=== PATIENT | female | born 1950 | race Caucasian/White ===

== ENCOUNTER 2019-01-06 16:58 | Emergency (ER) | payer SELFPAY ==
[2019-01-06 16:59] VITALS: BP 149/76; PULSE 65; RESP 16; TEMP 36.7; O2SAT 99; BMI 21.2
--- NOTE | 2019-01-06 17:19 | RAD_ITS ---
STUDY: X-RAY CHEST REASON FOR EXAM: Female, 68 years old. Chest pain TECHNIQUE: Frontal view of the chest COMPARISON: None. FINDINGS: The lungs are clear. There are no pleural effusions. There is no pneumothorax. The heart is normal in size. The visualized osseous structures are within normal limits. Hiatal versus left diaphragmatic hernia present. RAD/Chest 1 View (Portable) IMPRESSION: No acute thoracic pathology. Hiatal versus left diaphragmatic hernia. Electronically Signed: Gee Stanley, at 17:40 EDT Tel , Service support ,
[2019-01-06 17:21] VITALS: BP 126/72; PULSE 91; RESP 24; O2SAT 99
--- NOTE | 2019-01-06 17:27 | ED.VISSUMM ---
- ER Visit Summary Date of Service: 01/06/19 Chief Complaint: Palpitations History of Present Illness: The patient is a 68 F history of anxiety. Patient has no prior cardiac history. No recent travel, surgery, mobilization hospitalization. States that around 130 today start having palpitations. No chest pain. No shortness of breath. She was not lightheaded or dizzy. She did not pass out. No prior history. She does drink caffeine. 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 She denies any recent nausea, vomiting, diarrhea or hemoptysis. No melena. No history of thyroid disease or weight loss. Physical Examination: Older female no acute distress. Vital signs are stable and afebrile. Pulse ox 9% on room air no signs of hypoxia. HEENT exam unremarkable. Neck nontender no thyromegaly. No lymphadenopathy. Lungs clear to auscultation bilaterally. Heart regular rhythm occasional infrequent PVCs. No murmur. Rate about 80s. Chest nontender. Abdomen soft nontender. Extremities moves all 4. Calves nontender without edema or cords. Neurologically she is awake and alert with no focal motor deficits and skin is unremarkable. Test Results: CBC normal. Chemistries normal. Troponin normal. TSH normal. EKG sinus rhythm frequent PVCs. Chest x-ray no acute abnormality read both of myself and the radiologist. Emergency Department Course and Treatment: Patient clinically as PVCs. Exam otherwise unremarkable. Will undergo cardiac work-up if negative will cover with her being discharged home. Repeat exam at 1925 doing well. Discussed all test results the patient she will be discharged home. Treatment Plan: Follow-up with primary care physician as needed. Disposition: Discharge Impression: Acute palpitations secondary to PVCs This note was generated with [employer] software. It may contain incorrect words, spelling, and punctuation that were not noted in review of the chart prior to signing
--- NOTE | 2019-01-06 17:30 | ED.DCSUM_ITS ---
- ER Visit Summary Date of Service: 01/06/19 Chief Complaint: Palpitations History of Present Illness: The patient is a 68 F history of anxiety. Patient has no prior cardiac history. No recent travel, surgery, mobilization hospitalization. States that around 130 today start having palpitations. No chest pain. No shortness of breath. She was not lightheaded or dizzy. She did not pass out. No prior history. She does drink caffeine. 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 She denies any recent nausea, vomiting, diarrhea or hemoptysis. No melena. No history of thyroid disease or weight loss. Physical Examination: Older female no acute distress. Vital signs are stable and afebrile. Pulse ox 9% on room air no signs of hypoxia. HEENT exam unremarkable. Neck nontender no thyromegaly. No lymphadenopathy. Lungs clear to auscultation bilaterally. Heart regular rhythm occasional infrequent PVCs. No murmur. Rate about 80s. Chest nontender. Abdomen soft nontender. Extr emities moves all 4. Calves nontender without edema or cords. Neurologically she is awake and alert with no focal motor deficits and skin is unremarkable. Test Results: CBC normal. Chemistries normal. Troponin normal. TSH normal. EKG sinus rhythm frequent PVCs. Chest x-ray no acute abnormality read both of myself and the radiologist. Emergency Department Course and Treatment: Patient clinically as PVCs. Exam otherwise unremarkable. Will undergo cardiac work-up if negative will cover with her being discharged home. Repeat exam at 1925 doing well. Discussed all test results the patient she will be discharged home. Treatment Plan: Follow-up with primary care physician as needed. Disposition: Discharge Impression: Acute palpitations secondary to PVCs This note was generated with [employer]ation software. It may contain incorrect words, spelling, and punctuation that were not noted in review of the chart prior to signing
[2019-01-06 17:59] LABS: Absolute Lymphocyte Count 1.26 X10^3/ul (0.83-4.51); Absolute Neutrophil Count 4.4 X10^3/uL (2.0-7.7); Basophil# 0.03 X10^3/uL; Basophil% 0.5 % (0-1); Eosinophil# 0.05 X10^3/uL; Eosinophils% 0.8 % (0-5); Hematocrit 40.3 % (37-47); Hemoglobin 13.2 g/dl (12.0-15.0); Lymphocyte # 1.26 X10^3/ul (4.0); Lymphocyte % 20.4 % (19-41); Mean Corp Hgb Conc 32.8 g/gl (32-36); Mean Corpuscular Hgb 30.1 pg (27.0-32.0); Mean Platelet Vol. 9.7 fl (6.2-12.0); Monocyte# 0.44 X10^3/uL; Monocyte% 7.1 % (0-10); Neutrophil # 4.39 X10^3/uL (2.7-7.7); Neutrophil % 71.2 % (47-70); Platelet Count 274 K/mm3 (150-450); RBC Distribution Width CV 13.6 % (11.6-14.6); RBC Distribution Width SD 45.1 fl (35.1-43.9); Red Blood Count 4.38 M/mm3 (4.2-5.4); White Blood Count 6.2 K/mm3 (4.4-11.0)
[2019-01-06 18:01] LABS: POSITIVE COUNT NO; POSITIVE DIFFERENTIAL NO; POSITIVE MORPHOLOGY NO
[2019-01-06 18:19] LABS: Anion Gap 2 (5-15); BUN 10 mg/dL (7-18); BUN/Creat Ratio 14.2 RATIO (10-20); Calcium,Total 8.8 mg/dL (8.5-10.1); Chloride 107 mmol/L (98-107); Creatinine, Serum 0.71 mg/dL (0.55-1.02); EST Glomerular Filtration Rate 88 mL/min (>60); Est Glom Filt Rate - Afr Amer 106 mL/min (>60); Estimated Creatinine Clearance 47.14 ml/min; Glucose 115 mg/dL (74-106); Potassium 3.9 mmol/L (3.5-5.1); Sodium Level 141 mmol/L (136-145); Thyroid Stim Hormone (TSH) 0.61 uIU/mL (0.358-3.74)
[2019-01-06 19:15] VITALS: BP 106/55; PULSE 91; RESP 18; O2SAT 97
--- NOTE | 2019-01-06 19:26 | ED.DEP ---
ED Disposition - Plan for ED Patient: Disposition: Home or Assisted Living Instructions: ED Palpitations, Premature Ventricular Contractions Referrals: Pepe Espinoza MD [Primary Care Provider] - As Needed
== END 2019-01-06 19:38 | disposition home or self-care (01) ==
PROVIDERS: Emergency Provider Emergency Medicine; Family Provider Family Medicine; PCP Family Medicine
DX: I49.3 Ventricular premature depolarization (principal); F41.9 Anxiety disorder, unspecified; Z79.899 Other long term (current) drug therapy
CPT/HCPCS: 71045; 80048; 84443; 84484; 85025; 99284; A4216

== ENCOUNTER 2023-02-08 08:36 | Day surgery (SDC) | payer SELFPAY ==
[2023-02-08 09:02] VITALS: BP 110/44; PULSE 79; RESP 16; TEMP 36.5; O2SAT 100; BMI 18.1
[2023-02-08] MEDS: Lactated Ringers 1,000 ML 15 ML IV (09:07)
--- NOTE | 2023-02-08 09:19 | HP.PCM_ITS ---
History and Physical Date of Admission: 02/08/23 Date of Service:? 02/06/23 MR#: [id number] Acct: [id number] Name:KAYLEE OLSEN Rep #: [id number] : 1950 ? ? Provider: Dr. Giovanny Celestin MD Age/Sex:? 72/F ? ? [place] [facility] [place] Status: Signed Intake Vital Signs ? 02/01/2316:12 02/07/2312:34 Height 5 ft 4 in 5 ft 4 in Weight: ? 107 lb 2 oz BMI ? 18.3 BP ? 102/61 Blood Pressure Location ? Rt brachial Position ? Sitting Respiration ? 18 Pulse ? 69 Pulse Source ? Monitor Pulse Oximetry (%) ? 98 Oxygen Delivery Method ? 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 Is patient in pain?: No Allergies No Known Allergies Allergy (Verified 02/06/23 15:12) Medications alprazolam 0.5 mg tablet (Xanax) 0.5 mg PO DAILY PRN Anxiety 01/06/19 [History Confirmed 02/06/23] multivitamin 1 ea PO DAILY 01/06/19 [History Confirmed 02/06/23] docusate sodium 100 mg capsule (Colace) 100 mg PO 0800 01/23/23 [History Confirmed 02/06/23] sennosides 8.6 mg tablet (Natural Senna Laxative) 8.6 mg PO QHS 01/23/23 [History Confirmed 02/06/23] lidocaine-prilocaine 2.5 %-2.5 % topical cream 1 applic topical ONCE PRN port access 30 days #30 grams 02/06/23 [Rx Confirmed 02/06/23] PFSH Medical History?(Updated 02/06/23 @ 17:[address] Giovanny Celestin MD) Anxiety Bloody stool Cancer Chronic cough Diverticulitis Encounter for education GERD (gastroesophageal reflux disease) Hiatal hernia History of diverticulitis Migraine headache Non-smoker Ostomy nurse consultation Post-menopausal Regional lymph node metastasis present Wears glasses Surgical History?(Updated 02/06/23 @ 15:19 by Argentina Ortiz) History of hernia repair Hx of colonoscopy Hx of colostomy Hx of hand surgery Family History? Father Cancer ?? ? triple myelomaBrother Kidney disease ?? ? 3 kidney transplants Social History? Smoking Status:? Never smoker alcohol intake:? never substance use type:? does not use HPI HPI HPI: Patient is a 72-year-old female who presents for consideration of port placement.? She presents today with her son and .? Patient was diagnosed with moderately differentiated rectal adenocarcinoma on 01/03/2023 during colonoscopy after work-up for weight loss.? They have met with oncology and plans are to begin chemotherapy on 02/11/2023. Patient underwent laparoscopic transverse loop colostomy at [facility] on 01/06/2023.? She denies any perioperative issues initially, but then her reports possible infection with some spots around her stoma.? For her part, Mrs. Machado denies any fevers or chills. Patient has no prior history of central line placement.? Patient has no pacemaker or intracardiac defibrillator.? Patient has no renal dysfunction and are not on hemodialysis. Mrs. Machado is not currently prescribed blood thinners. ROS General General: Yes weight change and colon cancer; No appetite, fatigue, breast cancer or weakness Additional Details: loss: 26 lbs since 08/09 HEENT HEENT: No difficulty swallowing, eye injury, eye surgery, swollen glands or hoarseness Endo Endocrine: No thyroid disease, diabetes mellitus, thyroid cancer, Hair loss, heat intolerance or cold intolerance Skin Skin: No rash or changing moles Breast Breast: No left breast lump, right breast lump, nipple discharge, breast pain, abnormal mammogram, abnormal US or breast enlargement Musc Musculoskeletal: No back problems, arthritis, rheumatoid arthritis, gout or joint pain Cardio Cardiovascular: No murmur, pacemaker, heart disease, atrial fibrillation, high blood pressure, heart attack, heart stent, palpitations, shortness of breat with exertion or chest pain Psych Psychiatric: Yes anxiety; No depression or hearing voices Resp Respiratory: No shortness of breath, No sleep apnea, Yes cough, No COPD, No asthma, No emphysema and No wheezing Gastro Gastrointestinal: Yes abdominal pain, No nausea or vomiting, No diarrhea, No constipation, Yes blood in stool, No acid reflux, Yes hemorrhoids, No ulcers, No gallbladder problem and No black,tarry stools [place] Hematologic: No blood thinners, No blood disorders, No bleeding, No anemia and No blood clots Neuro Neurologic: No system reviewed and no additional complaints, except as documented, No as per HPI, No abnormal gait, No abnormal hearing, No abnormal movements, No abnormal speech, No behavioral changes, No burning sensations, No confusion, No convulsions, No disequilibrium, No dizziness, No localized weakness, No frequent falls, No headache(s), No lack of coordination, No loss of vision, No memory loss, No numbness, No other visual disturbances, No radicular pain, No restless legs, No sensory deficit, No syncope, No tingling, No tremor(s), No weakness and No other Exam Const General: cooperative and anxious Orientation: alert, awake and oriented x3 Neck Other: Slender, no scars, no rashes, no signs of infection Resp Effort & Inspection: normal respiratory effort Auscultation: no rales, no rhonchi and no wheezes Cardio Rate: regular rate Rhythm: regular rhythm Heart Sounds: S1 normal and S2 normal GI Other: Abdomen is examined and double barrel stoma is present beneath pasty dark brown stool.? There are no visible eruptions or cellulitic changes about the stoma appliance. Assessment and Plan Assessment and Plan (1) Rectal cancer: ?Status:?Acute ?Comment: This is a 72-year-old female who has been under work-up for possible rectosigmoid diverticulitis since fall 2021 now status post colonoscopy 01/03/2023 which identified moderately differentiated adenocarcinoma of the rectum.? Since this was a near?obstructing tumor transverse colostomy was re commended and undertaken at [facility] 01/06/2023 and uncomplicated fashion.? She has now met with oncology here at [place] and plans are to begin chemotherapy 02/11/2023.? She requires establishment of durable venous access for this therapy and meets with me today for this purpose.? I find no contraindications to proceeding with right possible left Port-A-Cath placement from her history or exam.? I have examined her abdomen and do not find any evidence of ongoing infection, but also look at photos taken from last evening and these are suggestive of possible minute stitch abscesses.? As long as her ostomy appliance remains intact at the time of her operation I do not believe this poses a prohibitive risk for procedure.? I detailed to Mrs. Machado and her family the need to remain absolutely vigilant to infection and insist upon sterile technique while her port is accessed.? She and her family expressed understanding of this information and denies any further questions. ?Plan: ? Placement of right possible left internal jugular Port-A-Cath under ultrasound guidance on 02/08/2023. (2) Regional lymph node metastasis present: I have examined the patient and the H&P has been reviewed. There are no clinical changes since date of exam. Neither patient nor family have any further questions so we will plan to proceed to the operating room as discussed above for Port-A-Cath placement.
[2023-02-08] MEDS: Cefazolin 2 GM in 0.9% Normal Saline 100 ML IV (09:29)
[2023-02-08] MEDS: Bupivacaine Mpf 0.5% 30 ML VIAL (10:32)
--- NOTE | 2023-02-08 10:40 | PCM.OPRPT ---
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 There she was administered preoperative antibiotics and positioned supine on the operating room table. Once sedation was begun, the upper chest and lower cervical region were prepped and draped in usual sterile fashion. A formal timeout was then conducted to confirm both the patient and procedure. Ultrasound was used to localize the right internal jugular vein. Then a wheal of 0.5% bupivacaine was raised superficially in this location and the vein was accessed under direct ultrasound guidance using a Seldinger technique and micro access kit to place a guidewire. The position of the guidewire was confirmed with fluoroscopy. The micro access guidewire was exchanged for standard 035 guidewire using the provided sheath. Next the position of the port pocket was determined and again local anesthetic was used to anesthetize the area of both the pocket and the tunneling cephalad. A transverse incision approximately 3 cm in width was made down through the subcutaneous tissue. Selective electrocautery was used to obtain hemostasis. Then with blunt dissection the port pocket was developed. The catheter was connected to the tunneler and was tunneled up to the position of the guidewire. Here the dilator and peel-away sheath were placed over the guidewire and the guidewire was removed. Position was again confirmed with fluoroscopy. The catheter was then fed into the sheath and slowly the sheath was peeled away as the catheter was inserted fully into the neck. The catheter tip appeared to be within the right atrium with x-ray and back in the chest the excess catheter was trimmed and the port was connected to the catheter. The port was tied into the pocket using 2-0 Prolene. Function was then tested using sterile saline on a Hernandez needle. It was locked with 3 mL of heparinized saline (concentration 50U/5mL). The port pocket was closed with a deep dermal stitch using a interrupted 3-0 Vicryl followed by 4-0 Monocryl subcuticular stitch. The 1 cm incision in the neck was closed with a single interrupted subcuticular stitch using 4-0 Monocryl. Dermabond was applied as a dressing. Patient was then aroused from the sedation and taken to PACU for ongoing recovery were a portable chest x-ray was obtained to confirm port positioning and exclude any pneumothorax. Grafts/Implants Used: 8 Slovak Port-A-Cath Complications None Admit VTE Documentation VTE Mechan Device Prophylaxis: SCD's Procedures Cardiovascular CF Procedures [id number]: [id number] Insert tunneled cv cath
--- NOTE | 2023-02-08 10:42 | DCINST_ITS ---
Discharge Instructions Diet Discharge Diet: No restrictions Activity Discharge Activity: May Shower Dressing / Incision Call your doctor if your incision/area has: Continuous Slow Oozing, Sudden Increased Bleeding, Increased Pain/ Swelling, Increased Redness, Foul Smelling Discharge and Swelling at the incision site Call your doctor if you observe: Fever of 101 or Higher and Uncontrolled pain Cleanse incision/area with: Soap & Water Follow Up Care Test Results: Test results from this visit will be discussed in further detail at your follow- up appointment, if applicable. Discharge Plan Admission Primary Reason for Your Visit: Port placement Attending Provider: Giovanny Celestin Primary Care Provider: Mojgan Cabrales Instructions Patient Instructions: Caring for Your Central Vein Access Discharge Orders/Prescriptions Prescriptions: Continued docusate sodium [Colace] 100 mg capsule 100 mg PO 0800 sennosides [Natural Senna Laxative] 8.6 mg tablet 8.6 mg PO QHS lidocaine-prilocaine 2.5-2.5 % cream 1 applic topical ONCE PRN (Reason: port access) 30 Days Qty: 30 2RF multivitamin 1 EACH tablet 1 ea PO DAILY alprazolam [Xanax] 0.5 MG tablet 0.5 mg PO DAILY PRN (Reason: Anxiety) Referrals / Follow Up: Mojgan Cabrales PA [Primary Care Provider] - Disposition Disposition (needs filled in before D/C Order can be placed): Home, Self Care
[2023-02-08 10:50] VITALS: BP 109/64; BP 110/44; PULSE 73; RESP 18; TEMP 36.5; O2SAT 100
[2023-02-08 10:55] VITALS: BP 110/44; BP 95/59; PULSE 71; RESP 16; O2SAT 100
--- NOTE | 2023-02-08 10:56 | RAD_ITS ---
HISTORY: Status post line placement. TECHNIQUE: XR Chest 1 View. COMPARISON: 01/06/2019. FINDINGS: CARDIOMEDIASTINAL BORDERS: Cardiac silhouette within normal limits in size. Mediastinal contour unremarkable. Right chest wall port with catheter tip in the high right atrium LUNGS: Radiographically clear. Mild hyperinflation. PLEURA: No pleural effusion or pneumothorax seen. OSSEOUS STRUCTURES: Degenerative change. RAD/CXR for Line Placement IMPRESSION: No acute cardiopulmonary process identified. Right chest wall port as above. Electronically Signed: Mandy Woods MD at 12:05 EDT ,
[2023-02-08 11:00] VITALS: BP 106/53; BP 110/44; PULSE 75; RESP 16; O2SAT 99
[2023-02-08 11:06] VITALS: BP 106/56; BP 110/44; PULSE 68; RESP 16; O2SAT 100
[2023-02-08 12:38] VITALS: BP 110/44; BP 114/63; PULSE 84; RESP 16; TEMP 36.2; O2SAT 95
== END 2023-02-08 13:00 | disposition home or self-care (01) ==
PROVIDERS: Referring Provider Surgery; Visit Provider Surgery
PROC: (CPT 36561; principal; 2023-02-08 09:45)
DX: Z45.2 Encounter for adjustment and management of vascular access device (principal); C77.9 Secondary and unspecified malignant neoplasm of lymph node, unspecified; C20 Malignant neoplasm of rectum; K21.9 Gastro-esophageal reflux disease without esophagitis; Z79.899 Other long term (current) drug therapy; Z78.0 Asymptomatic menopausal state
CPT/HCPCS: 36561; 00532; 71045; 77001; J7120; C1788

== ENCOUNTER → 2023-02-13 | Outpatient (CLI) | payer SELFPAY ==
--- NOTE | 2023-02-13 10:05 | NM_ITS ---
CLINICAL: 72-year-old female with history of hydronephrosis. 99m Tc MAG3 DIURETIC RENAL SCINTIGRAPHY COMPARISON: None available FINDINGS: Following the intravenous administration of 10 mCi of 99m Tc MAG3, renal images reveal: 1. The flow study demonstrates delayed and decreased arterial phase distribution of the radiopharmaceutical to the right kidney. Flow to the left kidney is scintigraphically normal. 2. Immediate static delayed nephrogram images depict prompt and homogeneous radiopharmaceutical concentration by the renal parenchyma of the left kidney. Uptake is delayed and decreased in the right kidney. Collecting structure visualization is defined at 2-3 minutes post tracer injection in the left kidney and approximately 5-6 minutes post tracer injection in the right kidney. Washout of the radiopharmaceutical by the right kidney parenchyma is delayed and decreased. Persistent collecting system activity is demonstrated in the bilateral kidneys right worse than left during 21 minutes of pre-Lasix sequential image acquisition. 3. The [id number] ratio of total renal parenchymal function was calculated to be 71/29. Furosemide 10 mg was administered intravenously. The post Lasix T ? washout of the left kidney collecting system activity was calculated to be < 10 minutes and > 20 minutes regarding the right kidney collecting system, (normal < 10 minutes). The analysis of the post Lasix time/activity curve of the right kidney collecting system demonstrates slowly decreasing count statistics. NM/Renal Scan w/ Pharm Intervent IMPRESSION: 1. There is scintigraphic evidence of right kidney renal parenchymal-cortical dysfunction. Preserved cortical function is defined in the left renal unit. 2. The right kidney collecting system demonstrates an abnormal response to diuretic administration consistent with a component of mechanical and/or functional obstruction. Electronically Signed: Magno Cardenas, at 15:00 EDT ,
== END | disposition home or self-care (01) ==
PROVIDERS: Referring Provider Urology; Visit Provider Urology
DX: N13.30 Unspecified hydronephrosis (principal)
CPT/HCPCS: 78708; A9562; J1940

== ENCOUNTER → 2023-03-18 | Outpatient (CLI) | payer SELFPAY ==
--- NOTE | 2023-03-18 10:39 | EKG12_ITS ---
Test Reason : PALPS Blood Pressure : / mmHG Vent. Rate : 076 BPM Atrial Rate : 076 BPM P-R Int : 122 ms QRS Dur : 090 ms QT Int : 370 ms P-R-T Axes : 072 051 041 degrees QTc Int : 416 ms Normal sinus rhythm Normal ECG Confirmed by PATRICK AJ, MARIA A ([id number]), continuity editor STEVE VILLAGOMEZ ([id number]) on 03/21/2023 8:48:10 AM Referred By: Sarah Lawson Confirmed By:JULIAN NGUYEN MD
== END | disposition home or self-care (01) ==
LOC: PSN 10:37
PROVIDERS: Referring Provider Internal Medicine Hematology & Oncology; Visit Provider Internal Medicine Hematology & Oncology
DX: I49.9 Cardiac arrhythmia, unspecified (principal)
CPT/HCPCS: 93005

== ENCOUNTER 2023-07-12 21:12 | Emergency (ER) | payer SELFPAY ==
[2023-07-12 21:13] VITALS: BP 132/67; PULSE 74; RESP 18; TEMP 36.7; O2SAT 100
[2023-07-12 22:08] VITALS: BMI 18.5
[2023-07-13] MEDS: 0.9% Normal Saline (1000mL) 1,000 ML 999 ML IV (00:05)
[2023-07-13] MEDS: Ondansetron 4 MG/2 ML Vial IV (00:06)
[2023-07-13 00:30] LABS: Hematocrit 35.9 % (37-47); Hemoglobin 11.8 g/dL (12.0-15.0); Mean Corp Hgb Conc 32.9 g/dL (32-36); Mean Corpuscular Hgb 32.1 pg (27.0-32.0); Mean Corpuscular Volume 97.6 fL (81-99); Mean Platelet Vol. 9.3 fl (6.2-12.0); POSITIVE COUNT YES; POSITIVE DIFFERENTIAL YES; POSITIVE MORPHOLOGY YES; Platelet Count 186 K/mm3 (150-450); RBC Distribution Width CV 15.1 % (11.6-14.6); Red Blood Count 3.68 M/mm3 (4.2-5.4)
[2023-07-13 00:32] LABS: AST(SGOT) 46 U/L (15-37); Alanine Aminotransfer ALT/SGPT 71 U/L (13-56); Albumin, Serum 3.6 g/dL (3.2-5.0); Alkaline Phosphatase 202 U/L (45-117); Anion Gap 6 (5-15); BUN 17 mg/dL (7-18); Bilirubin, Direct 0.11 mg/dL (0.00-0.30); Chloride 107 mmol/L (98-107); Creatinine, Serum 0.59 mg/dL (0.55-1.02); EST Glomerular Filtration Rate 107 mL/min (>60); Est Glom Filt Rate - Afr Amer 130 mL/min (>60); Estimated Creatinine Clearance 39.34 ml/min; Globulin 3.3 g/dL (2.2-4.2); Glucose 106 mg/dL (74-106); Lipase 40 U/L (13-75); Magnesium 2.1 mg/dL (1.6-2.6); Potassium 3.7 mmol/L (3.5-5.1); Protein, Total 6.9 g/dL (6.4-8.2); Sodium Level 140 mmol/L (136-145)
[2023-07-13 00:42] LABS: Differential Indicated MANUAL DIFF; White Blood Count 47.7 K/mm3 (4.4-11.0)
[2023-07-13] MEDS: Acetaminophen 500 MG Tablet 1000 MG PO (00:46)
[2023-07-13 01:10] LABS: Lymphocyte 1 % (19-41); Monocyte 2 % (0-10); Myelocyte 1 % (0-0); Neutrophil-Band 15 % (0-5); Neutrophil-Segmented 80 % (47-70); Total Cells Counted 100 (MANUAL DIFF)
[2023-07-13 01:11] LABS: Differential Comment SCANNED; Eosinophil 1 % (0-5)
[2023-07-13 01:13] LABS: Absolute Neutrophil Count 45.3 X10^3/uL (2.0-7.7)
[2023-07-13 01:14] LABS: Absolute Lymphocyte Count 0.48 X10^3/uL (0.83-4.51)
[2023-07-13 01:15] LABS: Platelet Estimate ADEQUATE (ADEQ); Platelet Morphology LARGE
[2023-07-13 02:12] VITALS: BP 107/62; PULSE 78; RESP 16; O2SAT 92
--- NOTE | 2023-07-13 02:50 | EX.ED.DYSGE1 ---
HPI History of Present Illness Chief Complaint: General Illness Informant: patient, spouse/S.O. and family Narrative Narrative: Patient is a 73-year-old female with intestinal cancer currently undergoing chemotherapy. She states she has had 5 total rounds with the most recent being just 2 days ago. She states that she does receive Neulasta after each infusion. She reports that this evening she had stood up and then felt overall weak and had blurry and crook vision and then reportedly sat down and then passed out according to family. Family denies any tonic-clonic jerking and states that after 1 to 2 minutes the patient awoke on her own and who she was and where she was at. Patient states she just feels drained and they are unsure if symptoms this evening were due to potential seizure or related to underlying cancer and secondary to his comes in for evaluation [facility] Medical History Anxiety Bloody stool Cancer Chronic cough Diverticulitis Drug induced neutropenia Dry eye Dysuria Encounter for chemotherapy management Encounter for education GERD (gastroesophageal reflux disease) Hiatal hernia History of diverticulitis Migraine headache Mucositis (ulcerative) due to antineoplastic therapy Non-smoker Ostomy nurse consultation Post-menopausal Regional lymph node metastasis present Suture material present UTI (urinary tract infection) Wears glasses Home Medications alprazolam 0.5 mg tablet (Xanax) 0.5 mg PO DAILY PRN Anxiety 01/06/19 [History Last Taken Unknown] multivitamin 1 ea PO DAILY 01/06/19 [History Last Taken Unknown] lidocaine-prilocaine 2.5 %-2.5 % topical cream 1 applic topical ONCE PRN port access 30 days #30 grams 02/06/23 [Rx Last Taken Unknown] ondansetron HCl 4 mg tablet 4 mg PO Q6H 02/14/23 [History Last Taken Unknown] loperamide 2 mg capsule (Imodium A-D) 2 mg PO Q6H PRN loose stool 02/25/23 [History Last Taken Unknown] Udenyca 6 mg/0.6 mL subcutaneous syringe (pegfilgrastim-cbqv) 6 mg (0.6 mL) subcut ONCE #0.6 mL 06/10/23 [Rx Last Taken Unknown] Allergy/AdvReac Type Severity Reaction Status Date / Time No Known Allergies Allergy Verified 07/12/23 21:16 Family History Father Cancer triple myeloma Brother Kidney disease 3 kidney transplants Surgical History History of hernia repair Hx of colonoscopy Hx of colostomy Hx of hand surgery Social History Smoking Status: Never smoker alcohol intake: never substance use type: does not use ROS ROS ED Constitutional Constitutional ED: Denies chills or fever(s) Eyes Eyes: Reports blurry vision ENT ENT ED: Denies sore throat Cardiovascular Cardiovascular: Reports other Details: Positive syncope ; Denies chest pain, palpitations or racing heartbeat Respiratory/Chest Respiratory/Chest: Denies cough or dyspnea Gastrointestinal Gastrointestinal: Reports nausea; Denies abdominal pain, diarrhea or vomiting Genitourinary Genitourinary ED: Denies dysuria Musculoskeletal Musculoskeletal: Reports myalgias Integumentary Denies rash Neurologic Neurologic: Reports headache(s) Hematologic/Lymphatic Hematologic/Lymphatic: Denies easy bleeding or easy bruising EXAM Physical Exam Const Vital Signs: 07/12/23 21:13 07/12/23 22:10 07/13/23 02:12 Temperature 98.0 F Temperature Source Temporal Pulse Rate 74 78 Respiratory Rate 18 16 Respiratory Pattern Normal Blood Pressure 132/67 H 107/62 Blood Pressure Mean 88 77 Pulse Ox 100 92 Oxygen Delivery Method Room Air Room Air Positive well developed and cachectic General Appearance ED: well developed, cachectic and pallor Nutritional Appearance: cachectic HEENT Reports dry mucous membranes HEENT Narrative: No tongue or cheek biting noted. Mucous membranes are dry and tacky without secondary changes to suggest infection Head is normocephalic and atraumatic. Mouth ED: Yes dry mucous membranes Mouth: dry mucous membranes Eyes PERRL and EOMs intact bilaterally General Eye ED: Yes pale conjunctiva; Negative for scleral icterus Neck supple Neck Narrative: No nuchal rigidity or meningeal signs noted Chest Wall Chest Narrative: Port in the right chest wall without secondary changes to suggest infection Resp normal respiratory effort and clear to auscultation bilaterally Cardio regular rate and regular rhythm Rate: other Other Details: Heart is regular rate and rhythm without murmurs rubs or gallops GI non-tender and non-distended GI Narrative: Abdomen is soft and nondistended with normal active bowel sounds. Patient has a colostomy in place draining brown liquidy stool. No voluntary guarding or rigidity. Auscultation: normoactive bowel sounds Palpation: soft Extremity normal to inspection Neuro oriented x3, CN's II-XII intact bilaterally and no sensory deficits noted Neuro Narrative: Cranial nerves II through XII are grossly intact there are no focal neurologic deficits. No pronator drift no dysmetria no truncal ataxia. NIH stroke scale score of 0 Sensorium / Orientation: alert Motor Exam: strength 5/5 throughout Psych mental status grossly normal Skin no rashes or lesions noted and skin turgor normal Skin Narrative: Skin is slightly pale and there is increased skin turgor present but capillary refill remains less than 3 seconds General Skin Exam: pallor; Negative for jaundice MDM MDM MDM Narrative Medical decision making narrative: Patient presented to the ER with stable vitals and in no acute distress with normal neurologic exam. They reported that she had stood up felt weak and then developed almost a tunnel vision followed by a brief episode of syncope. This is most likely related to dehydration based on the history. Will diagnosis is orthostatic syncope versus acute blood loss anemia versus electrolyte derangement versus acute kidney injury versus neutropenia. As the patient showed physical exam findings of skin tenting and dry mucous membranes consistent with dehydration she was given 1 L of fluid. As her neurologic exam was normal and the symptoms correlated more syncope versus seizure or stroke/TIA I do not feel need for head CT. Labs reveal stable H&H with no clinically significant electrolyte derangement and normal kidney function. Patient is white count is drastically elevated at approximately 48 but she did just receive the Neulasta shot which is most likely the cause for the elevation as she is afebrile with elevated neutrophil count and no obvious findings of infection on physical exam or history. After receiving IV hydration and Zofran the patient was able to ambulate without any symptoms and reported feeling better. Therefore this time she is not neutropenic she is able to walk with a steady gait does not have findings concerning for stroke nor is she showing overt signs of infection despite the white blood cell count which is most likely related to the Neulasta I do feel comfortable with her returning home and she can follow-up with her family doctor and oncologist for further evaluation. Plan of care was discussed with family and patient and they are agreeable to it History & Record Review Discussion w/independent historian: Patient and Family Lab Data Attestation: I reviewed the patient's lab results. Labs: Laboratory Results - last 24 hr 07/13/23 00:00 WBC 47.7 H* RBC 3.68 L Hgb 11.8 L Hct 35.9 L MCV 97.6 MCH 32.1 H MCHC 32.9 RDW Std Deviation 54.0 H RDW Coeff of Nav 15.1 H Plt Count 186 MPV 9.3 Neut % (Auto) Not Reportable Absolute Neuts (auto) 45.3 H Absolute Lymphs (auto) 0.48 L Total Counted 100 Neutrophils % (Manual) 80 H Band Neutrophils % 15 H Lymphocytes % (Manual) 1 L Monocytes % (Manual) 2 Eosinophils % (Manual) 1 Myelocytes % 1 H Differential Comment SCANNED Diff Path Review May foll Platelet Estimate ADEQUATE Plt Morphology Comment LARGE Sodium 140 Potassium 3.7 Chloride 107 Carbon Dioxide 27.0 Anion Gap 6 BUN 17 Creatinine 0.59 Estim Creat Clear Calc 39.34 Est GFR (MDRD) Af Amer 130 Est GFR (MDRD) Non-Af 107 BUN/Creatinine Ratio 29.0 H Glucose 106 Calcium 9.0 Magnesium 2.1 Total Bilirubin 0.40 Direct Bilirubin 0.11 AST 46 H ALT 71 H Alkaline Phosphatase 202 H Total Protein 6.9 Albumin 3.6 Globulin 3.3 Lipase 40 Discharge Plan Triage Chief Complaint: General Illness ED Provider: Kehinde Stevens Dx/Rx/DC Orders Clinical Impression: Orthostatic syncope, Mild dehydration, Rectal cancer Instructions: Dizziness Fainting Causes, ED Dehydration (Adult) Prescriptions: No Action lidocaine-prilocaine 2.5-2.5 % cream 1 applic topical ONCE PRN (Reason: port access) 30 Days Qty: 30 2RF loperamide [Imodium A-D] 2 mg capsule 2 mg PO Q6H PRN (Reason: loose stool) ondansetron HCl 4 mg tablet 4 mg PO Q6H multivitamin 1 EACH tablet 1 ea PO DAILY alprazolam [Xanax] 0.5 MG tablet 0.5 mg PO DAILY PRN (Reason: Anxiety) Udenyca 6 mg/0.6 mL syringe 6 mg subcut ONCE Qty: 0.6 3RF Rx Instructions: as a single dose on day 3 of even numbered cycles Primary Care Provider: Mojgan Cabrales Referrals: Mojgan Cabrales PA [Primary Care Provider] - Activity Restrictions/Additional Instructions: Please keep yourself well-hydrated and return to the ER should you have any further concerns. Continue all of your outpatient medications as directed by your doctor Disposition Disposition: Home, Self Care Discharge Date/Time: 07/13/23 03:44
[2023-07-15 13:24] LABS: Pathologist Review Reviewed
== END 2023-07-13 03:44 | disposition home or self-care (01) ==
PROVIDERS: Emergency Provider Emergency Medicine; Visit Provider Emergency Medicine
DX: R55 Syncope and collapse (principal); C20 Malignant neoplasm of rectum; E86.0 Dehydration; Z79.899 Other long term (current) drug therapy
CPT/HCPCS: 80048; 80076; 83690; 83735; 85025; 96361; 96374; 99282; J7030; A4216; J2405

== ENCOUNTER → 2024-01-06 | Outpatient (CLI) | payer SELFPAY ==
--- NOTE | 2024-01-06 09:15 | BI_ITS ---
MAMMOGRAPHY - BILATERAL SCREENING 3-D TOMOSYNTHESIS REASON FOR EXAM: Female, 73 years old. ANNUAL SCREENING PERTINENT HISTORY: No significant family history. TECHNIQUE: 2-D mammograms and 3-D Tomosynthesis of the breast (s) were performed. CAD was performed. COMPARISON: None. FINDINGS: The breast composition is composed of scattered fibroglandular density. Scattered benign calcifications are seen. No dense spiculated masses or suspicious microcalcifications are identified. No architectural distortion is identified. There is no skin thickening or retraction. There has been no significant change since the prior study. BI/SCRN MAMM (CAD)W/HECTOR BILAT IMPRESSION: No mammographic signs of malignancy. Routine yearly mammograms recommended. ASSESSMENT CATEGORY: BIRADS Category 1: Negative. A letter regarding these results will be sent to the patient by the facility within 30 days. FOLLOW UP RECOMMENDATION: Yearly follow up mammogram recommended. (A) Approximately 10% of breast cancers are not detected by mammography. A normal mammogram should not delay biopsy of a clinically suspicious abnormality. Electronically Signed: Magno Glass MD at 14:10 EDT ,
== END | disposition home or self-care (01) ==
PROVIDERS: Referring Provider Internal Medicine Hematology & Oncology; Visit Provider Internal Medicine Hematology & Oncology
DX: Z12.31 Encounter for screening mammogram for malignant neoplasm of breast (principal)
CPT/HCPCS: 77063; 77067

== ENCOUNTER → 2024-03-30 | Outpatient (CLI) | payer SELFPAY ==
--- NOTE | 2024-03-30 13:25 | CT_ITS ---
EXAM: CT CHEST, ABDOMEN AND PELVIS WITH INTRAVENOUS CONTRAST CLINICAL INDICATION: restaging for rectal cancer TECHNIQUE: Helically acquired images were obtained of the chest, abdomen and pelvis with intravenous contrast. This CT exam was performed using one or more of the following dose reduction techniques: automated exposure control, adjustment of the mA and/or kV according to patient size, and/or use of iterative reconstruction technique. CONTRAST: IV 100mL Isovue-300 COMPARISON: CT abdomen and pelvis, therapy planning. Examination dated 02/04/2023 FINDINGS: CHEST: LUNGS AND PLEURAL SPACES: 4 mm left lower lobe pulmonary nodule. No pleural effusion or thickening. No pneumothorax. HEART: No significant abnormality. Heart size is normal. No pericardial effusion. MEDIASTINUM: No significant abnormality. No mediastinal or hilar adenopathy. Esophagus is unremarkable. No hiatal hernia. THYROID: No significant abnormality. No thyroid lesions. ABDOMEN: LIVER: Posterior right hepatic lobe 5 mm low-attenuation lesion, too small to further characterize. GALLBLADDER AND BILE DUCTS: No significant abnormality. No calcified gallstones. No gallbladder distention or wall edema. No intra- or extrahepatic biliary ductal dilation. PANCREAS: No significant abnormality. No focal cystic or solid mass. SPLEEN: No significant abnormality. Normal size without focal cystic or solid mass. ADRENALS: No significant abnormality. No nodules. KIDNEYS AND URETERS: Markedly enlarged right renal pelvis similar to the prior examination. Left upper pole renal cyst for which no follow-up is indicated. Normal renal size and position. STOMACH AND BOWEL: Soft tissue fullness in the region of the anus and distal rectum is nonspecific. Postoperative changes at the sigmoid rectal junction. Moderate colonic stool retention. No stomach or bowel distention. No focal inflammatory change. PELVIS: APPENDIX: Normal appendix in the right lower quadrant. BLADDER: No significant abnormality. REPRODUCTIVE: Normal as visualized. No mass. CHEST, ABDOMEN and PELVIS: INTRAPERITONEAL SPACE: Trace free fluid within the deep pelvis is nonspecific. No free air. BONES/JOINTS: Degenerative changes throughout the axial and appendicular skeleton. Prominent fat attenuation within the L5 vertebral body and the sacrum perhaps secondary to changes related to radiotherapy. No suspicious lytic or blastic abnormality. SOFT TISSUES: No significant abnormality. No discrete abdominal or pelvic wall hernia. VASCULATURE: No significant abnormality. Aorta is non-dilated. No aortic dissection. No obvious central pulmonary embolism although this study was not performed with the pulmonary embolism protocol. LYMPH NODES: No significant abnormality. No enlarged lymph nodes. OTHER FINDINGS: Left lower quadrant enterostomy. CT/CT Chest, Abd, Pel w/Contrast IMPRESSION: 1. 4 mm left lower lobe pulmonary nodule. This was out of the [id number] on prior examination and in the setting of known malignancy may be a metastatic lesion. 2. Posterior right hepatic lobe 5 mm low-attenuation lesion, too small to further characterize. ACR White Paper guidelines (Dominic, et al. JACR 2017; 14(11):5230-4254.) suggest follow-up abdominal MR in 3-6 months. 3. Prominent fat attenuation within the L5 vertebral body and the sacrum perhaps secondary to changes related to radiotherapy. No acute osseous findings are otherwise identified. 4. Soft tissue fullness in the region of the anus and distal rectum is nonspecific. Postoperative changes at the sigmoid rectal junction. Consider pelvic MRI for further evaluation. 5. Moderate colonic stool retention. No bowel obstruction. Electronically Signed: Hernán Lantigua DO at 22:58 EDT ,
[2024-03-30 14:19] LABS: CREATININE FINGERSTICK < 1.0 mg/dL (0.55-1.02); EGFR FINGERSTICK > 60.0000 mL/min (>60)
== END | disposition home or self-care (01) ==
PROVIDERS: Referring Provider Student in an Organized Health Care Education/Training Program; Visit Provider Student in an Organized Health Care Education/Training Program
DX: C20 Malignant neoplasm of rectum (principal)
CPT/HCPCS: 71260; 74177; Q9967

== ENCOUNTER 2024-05-13 09:50 | Emergency (ER) | payer OTHER, SELFPAY ==
[2024-05-13] VITALS (12 sets, daily range): BP systolic 96–115; BP diastolic 50–76; PULSE 91–108; RESP 16–23; TEMP 37.2–38.8; O2SAT 94–98; BMI 21.4
--- NOTE | 2024-05-13 10:42 | CT_ITS ---
EXAM: CT ABDOMEN AND PELVIS WITH INTRAVENOUS CONTRAST CLINICAL INDICATION: fever, recent colostomy reversal TECHNIQUE: Helically acquired images were obtained of the abdomen and pelvis with intravenous contrast. This CT exam was performed using one or more of the following dose reduction techniques: automated exposure control, adjustment of the mA and/or kV according to patient size, and/or use of iterative reconstruction technique. CONTRAST: Oral and amp;amp; IV Gastrografin and amp;amp; 75mL Isovue-300 COMPARISON: CT Abdomen Pelvis dated 03/30/2024 FINDINGS: LOWER THORAX: Normal. Lung bases are clear. No cardiomegaly. No pericardial effusion. ABDOMEN: LIVER: Normal. Homogeneous. No focal mass. GALLBLADDER AND BILE DUCTS: Normal. No calcified gallstones. No gallbladder distention or wall edema. No intra- or extrahepatic biliary ductal dilation. PANCREAS: Normal. No focal cystic or solid mass. SPLEEN: Normal. Normal size without focal cystic or solid mass. ADRENALS: Normal. No nodules. KIDNEYS AND URETERS: Prominent right pyelocaliectasis noted without distended ureter consistent with a UP junction obstruction. Similar but much less prominent changes of the left renal collecting system. Stable small cyst within the upper pole of the left kidney. No specific follow-up indicated. Normal renal size and position. STOMACH AND BOWEL: Moderate stool burden within the large bowel. Surgical anastomosis at the level of the rectum again seen. Interval takedown of the left central double barrel colostomy. PELVIS: APPENDIX: Appendix is visualized and normal in appearance. BLADDER: Normal. REPRODUCTIVE: Stable 2.2 cm cystic area along the right adnexa may be ovarian in nature or related to prior surgery. ABDOMEN and PELVIS: INTRAPERITONEAL SPACE: Normal. No ascites or other fluid collection. No free air. BONES/JOINTS: No suspicious lytic or blastic abnormality. SOFT TISSUES: Normal. No discrete abdominal or pelvic wall hernia. VASCULATURE: Normal. Abdominal aorta is non-dilated. LYMPH NODES: Normal. No enlarged lymph nodes. CT/Abdomen/Pelvis WITH Contrast IMPRESSION: 1. Interval takedown of the double barrel colostomy. 2. Constipation. 3. Stable bilateral UP junction obstruction remaining more prominent on the right than left. Electronically Signed: Geovanny Simmons MD at 13:09 EDT ,
--- NOTE | 2024-05-13 10:42 | EKG12_ITS ---
Test Reason : FEVER Blood Pressure : / mmHG Vent. Rate : 099 BPM Atrial Rate : 099 BPM P-R Int : 126 ms QRS Dur : 076 ms QT Int : 326 ms P-R-T Axes : 076 059 064 degrees QTc Int : 418 ms Normal sinus rhythm Nonspecific ST abnormality Abnormal ECG Confirmed by Giovanny Agrawal ([id number]), film or videotape editor LINN ROMAN ([id number]) on 05/15/2024 9:38:48 AM Referred By: Confirmed By:Giovanny Agrawal
[2024-05-13 10:53] LABS: Bacteria 0 SEEN /hpf (None Seen); Mucous, Urine 0 SEEN /hpf (<or=2+); Red Blood Cells-Urine 0 SEEN /hpf (0-5); White Blood Cells 0 SEEN /hpf (0-5)
[2024-05-13 10:55] LABS: Color, Urine Yellow (Yellow); Glucose, Dipstick Normal (Normal); Ketone-Dipstick Negative (Negative); Leukocyte Esterase-Dipstick Negative /ul (Negative); Nitrite-Dipstick Negative (Negative); Occult Blood-Urine Negative /ul (Negative); Protein-Dipstick Negative (Negative); Urine Bilirubin Dipstick Negative (Negative); Urine Clarity Sl. Cloudy (Clear); Urine Urobilinogen Normal (Normal); Urine pH 6.5 (5.0 - 8.0)
--- NOTE | 2024-05-13 10:58 | EDS_ITS ---
HPI History of Present Illness Chief Complaint: Fever Informant: patient and family Narrative Narrative: Patient is a 73 year old female with history of rectal cancer status post resection, chemotherapy and radiation. She underwent reversal of her colostomy on May 07 (6 days ago) with Dr. Neely through [facility]. She was discharged home 3 days ago. She states overall she has been feeling well however yesterday she was fatigued after heating up some food and doing laundry. She states that she has been having regular bowel movements that have progressed from black to brown. This morning around 7 AM she developed shaking chills and then an hour later had a fever 101.2. She did take a Xanax because she is get very anxious about the chills. She did not take anything for her fever. She also she had some headache and nausea. She did take Zofran at home which helps. She came in for further evaluation given her recent postoperative status. She does also note that her had a recent shingles outbreak on his chest. Patient denies any rash. She states she did have chickenpox as a child. She denies any urinary symptoms or increased abdominal pain. Denies any abnormal drainage from her surgical site. Denies any cough of note she has had some very mild nasal congestion. No other complaints or concerns reported at this time. 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 Encounter for education Regional lymph node metastasis present GERD (gastroesophageal reflux disease) Bloody stool Anxiety Diverticulitis Hiatal hernia Home Medications ?Medication ?Instructions ?Recorded ?Last Taken ?Type alprazolam 0.5 mg tablet (Xanax) 0.5 mg PO DAILY PRN Anxiety 01/06/19 Unknown History multivitamin 1 ea PO DAILY 01/06/19 Unknown History ondansetron HCl 4 mg tablet 4 mg PO Q6H 02/14/23 Unknown History loperamide 2 mg capsule (Imodium 2 mg PO Q6H PRN loose stool 02/25/23 Unknown History A-D) Udenyca 6 mg/0.6 mL subcutaneous 6 mg (0.6 mL) subcut ONCE #0.6 mL 08/08/23 Unknown Rx syringe ([id number]) cefdinir 300 mg capsule 300 mg PO BID #14 caps 05/13/24 Unknown Rx metronidazole 500 mg tablet 500 mg PO Q8H #21 tabs 05/13/24 Unknown Rx Allergy/AdvReac Type Severity Reaction Status Date / Time No Known Allergies Allergy Verified 05/13/24 09:51 Family History Father Cancer triple myeloma Brother Kidney disease 3 kidney transplants Surgical History History of bowel resection Hx of colostomy Hx of hand surgery History of hernia repair Hx of colonoscopy Social History Smoking Status: Never smoker alcohol intake: never substance use type: does not use ROS ROS ED Constitutional Constitutional ED: Reports chills and fever(s) ENT ENT ED: Reports other Details: mild nasal congestion ; Denies rhinorrhea or sore throat Cardiovascular Cardiovascular: Denies chest pain or palpitations Respiratory/Chest Respiratory/Chest: Denies cough or dyspnea Gastrointestinal Gastrointestinal: Reports abdominal pain, nausea and other Details: Reports postoperative abdominal pain?denies any increase of it ; Denies constipation, diarrhea or vomiting Genitourinary Genitourinary ED: Denies dysuria or hematuria Musculoskeletal Musculoskeletal: Denies arthralgias or myalgias Integumentary Denies rash Neurologic Neurologic: Reports headache(s); Denies paresthesias or weakness Psychiatric Psychiatric: Reports anxiety Hematologic/Lymphatic Hematologic/Lymphatic: Denies easy bleeding or easy bruising EXAM Physical Exam Const Vital Signs: 05/13/24 09:51 05/13/24 09:53 05/13/24 10:24 Temperature 99.7 F H 101.7 F H Temperature Source Oral Oral Pulse Rate 107 H 97 Respiratory Rate 16 23 H Respiratory Effort Normal Non-Labored Respiratory Pattern Normal Blood Pressure 104/51 L 115/56 L Blood Pressure Mean 68 75 Pulse Ox 95 98 Oxygen Delivery Method Room Air Room Air 05/13/24 10:53 05/13/24 10:54 05/13/24 11:00 Temperature 101.7 F H 101.3 F H Temperature Source Oral Oral Pulse Rate 98 108 H Respiratory Rate 17 19 H Respiratory Effort Respiratory Pattern Blood Pressure 106/53 L 108/64 Blood Pressure Mean 70 78 Pulse Ox 98 97 97 Oxygen Delivery Method Room Air Room Air Room Air 05/13/24 11:52 05/13/24 12:00 05/13/24 13:00 Temperature 101.6 F H 102 F H 102 F H Temperature Source Oral Oral Oral Pulse Rate 102 H 99 104 H Respiratory Rate 20 H 21 H 23 H Respiratory Effort Respiratory Pattern Blood Pressure 96/56 L 103/50 L 111/52 L Blood Pressure Mean 69 67 71 Pulse Ox 97 96 95 Oxygen Delivery Method Room Air Room Air Room Air 05/13/24 14:00 05/13/24 15:00 05/13/24 15:00 Temperature 100 F H 99.8 F H Temperature Source Oral Oral Pulse Rate 106 H 101 H 101 H Respiratory Rate 21 H 16 16 Respiratory Effort Respiratory Pattern Blood Pressure 106/61 104/54 L 104/54 L Blood Pressure Mean 76 70 70 Pulse Ox 94 95 95 Oxygen Delivery Method Room Air Room Air Room Air Positive well nourished and well developed General Appearance ED: well developed and NAD HEENT Reports dry mucous membranes HEENT Narrative: Normal oropharynx Mouth ED: Yes dry mucous membranes Mouth: dry mucous membranes Eyes PERRL and EOMs intact bilaterally Neck supple Chest Wall inspection of chest normal and palpation of chest normal Resp normal respiratory effort and clear to auscultation bilaterally Cardio regular rhythm Rate: tachycardic GI GI Narrative: Mild tenderness palpation at surgical site but appropriate about concerning postoperative status. No peritoneal signs. Bowel sounds present. Extremity normal to inspection Neuro oriented x3 Sensorium / Orientation: alert Motor Exam: general weakness Psych mental status grossly normal Skin Skin Narrative: Healing surgical incision of the left mid abdomen with sutures in place. No surrounding erythema or drainage appreciated. MDM MDM MDM Narrative Medical decision making narrative: Patient evaluated for fever. She is less than a week postop from reversal of anastomosis. Patient overall is well-appearing outpatient is appear mildly dehydrated and is febrile. Differential includes sepsis, postop infection, urinary tract infection, pyelonephritis, pneumonia, COVID-19 infection, pneumothorax. Lower suspicion for DVT/PE as she does not have any O2 requirements and the fever is higher than I would expect for postoperative thrombosis. Septic workup was obtained in addition CT of the abdomen pelvis with oral c ontrast is obtained. Patient's workup shows a very mild leukocytosis of 11.2 with no shift. CMP is normal. Lactate is normal. Urinalysis axis with infection. Chest x-ray viewed by myself as well as radiology does not show any acute process. CT of the abdomen and pelvis shows interval takedown of double barrel colostomy, constipation and stable bilateral UP junction obstruction remaining more prominent on the right than the left. Patient does have a largely distended bladder and her ultrasound but after CT is able to urinate 900 cc. Patient is given IV fluids, Tylenol and then Toradol for her symptoms. Films are pushed through [facility] and I discussed the case with the patient's surgeon, Dr. Neely. He reviewed the films with me. He agrees that there is a lot of constipation and questionably sees some area of inflammation around the sigmoid colon. Recommends patient stop her fiber supplement so she can have further bowel movements. Will also trial enema in the ER. Will empirically place the patient on cefdinir and Flagyl in case she does have an intra- abdominal infection and place the patient on a full liquid diet. The office will call her today or tomorrow to see how she is doing and schedule for follow- up the following Saturday. Patient and family agreeable this plan of care. They are comfortable being discharged home. On repeat evaluation patient is complaining of a headache now. Is given another liter of fluid and IV Reglan with improvement of her symptoms. Is given first dose of antibiotics in the ER. Rectal exam does not show any fecal impaction. Patient does not really hold in any of the enemas well while in the emergency room. Lab Data Attestation: I reviewed the patient's lab results. Labs: Laboratory Results - last 24 hr 05/13/24 05/13/24 10:39 10:58 WBC 11.2 H RBC 3.49 L Hgb 10.7 L Hct 33.0 L MCV 94.6 MCH 30.7 MCHC 32.4 RDW Std Deviation 47.6 H RDW Coeff of Nav 13.9 Plt Count 287 MPV 8.4 Immature Gran % (Auto) 0.400 Neut % (Auto) 88.9 H Lymph % (Auto) 4.0 L [place] % (Auto) 6.0 Eos % (Auto) 0.4 Baso % (Auto) 0.3 Absolute Neuts (auto) 9.9 H Absolute Lymphs (auto) 0.45 L Nucleated RBC % 0 PT 13.5 INR 1.0 APTT 26.9 Sodium 137 Potassium 3.8 Chloride 101 Carbon Dioxide 30.0 Anion Gap 6 BUN 11 Creatinine 0.68 Est GFR (MDRD) Af Amer 109 Est GFR (MDRD) Non-Af 90 BUN/Creatinine Ratio 16.2 Glucose 105 Lactic Acid 0.7 Calcium 9.4 Total Bilirubin 0.30 AST 25 ALT 37 Alkaline Phosphatase 158 H Total Protein 7.4 Albumin 3.8 Globulin 3.6 Albumin/Globulin Ratio 1.1 Urine Color Yellow Urine Clarity Sl. Cloudy Urine pH 6.5 Ur Specific [place] 1.010 Urine Protein Negative Urine Glucose (UA) Normal Urine Ketones Negative Urine Occult Blood Negative Urine Nitrite Negative Urine Bilirubin Negative Urine Urobilinogen Normal Ur Leukocyte Esterase Negative Urine RBC 0 SEEN Urine WBC 0 SEEN Ur Squamous Epith Cells 0-5 SEEN Urine Bacteria 0 SEEN Urine Mucus 0 SEEN Radiography Diagnostic Testing: Clinical Impression(s) from Imaging Studies Abdomen/Pelvis CT 05/13/24 10:42 IMPRESSION: 1. Interval takedown of the double barrel colostomy. 2. Constipation. 3. Stable bilateral UP junction obstruction remaining more prominent on the right than left. Electronically Signed: Geovanny Simmons MD at 13:09 EDT Reading Location ID and State: [id number] Tel , Service support , Chest X-Ray 05/13/24 12:46 IMPRESSION: No acute cardiopulmonary abnormality. Electronically Signed: Geovanny Simmons MD at 13:13 EDT , Rhythm Strip Rhythm Strip: Sinus Rhythm Rate: 99 Ectopy: None EKG Initial EKG: Attestation: I personally reviewed and interpreted this EKG as follows: Interpretation: Sinus Rhythm Comments: Normal sinus rhythm at a rate of 99 bpm Normal axis Normal intervals Nonspecific ST abnormalities Management Discussion w/another healthcare provider: [employer] Discharge Plan Triage Chief Complaint: Fever ED Provider: Ileana Davidson Dx/Rx/DC Orders Clinical Impression: Constipation, Acute febrile illness Instructions: ED Constipation (Adult), ED FUO Adult, ED Full Liquid Diet Prescriptions: New cefdinir 300 mg capsule 300 mg PO BID Qty: 14 0RF metronidazole 500 mg tablet 500 mg PO Q8H Qty: 21 0RF No Action loperamide [Imodium A-D] 2 mg capsule 2 mg PO Q6H PRN (Reason: loose stool) ondansetron HCl 4 mg tablet 4 mg PO Q6H multivitamin 1 EACH tablet 1 ea PO DAILY alprazolam [Xanax] 0.5 MG tablet 0.5 mg PO DAILY PRN (Reason: Anxiety) Udenyca 6 mg/0.6 mL syringe 6 mg subcut ONCE Qty: 0.6 1RF Rx Instructions: as a single dose on day 3 of chemotherapy cycles Primary Care Provider: Mojgan Cabrales Referrals: Mojgan Cabraels PA [Primary Care Provider] - Activity Restrictions/Additional Instructions: Please alternate ibuprofen and Tylenol for fever control. Make sure drinking plenty of fluids. You have a large amount of constipation/stool seen on your CT imaging. Please stop taking your fiber pills and go to full liquid diet for the next 1 to 2 days until you have cleared out your GI tract. Follow-up closely with your colorectal surgeon. They should call you tomorrow and arrange for follow-up this coming Saturday. We will also place you on antibiotics in case there is a subtle intra-abdominal infection. Print Language: Syriac Disposition Disposition: Home, Self Care
[2024-05-13 11:04] LABS: Squamous Epithelial Cells - UA 0-5 SEEN /hpf (5-10)
[2024-05-13] MEDS: Acetaminophen 325 MG Tablet 650 MG PO (11:05)
[2024-05-13] MEDS: 0.9% Normal Saline (1000mL) 1,000 ML 999 ML IV ×2 (11:07→15:28)
[2024-05-13 11:11] LABS: Absolute Lymphocyte Count 0.45 X10^3/uL (0.83-4.51); Absolute Neutrophil Count 9.9 X10^3/uL (2.0-7.7); Basophil# 0.03 X10^3/uL; Basophil% 0.3 % (0-1); Eosinophil# 0.05 X10^3/uL; Eosinophils% 0.4 % (0-5); Hemoglobin 10.7 g/dL (12.0-15.0); Lymphocyte # 0.45 X10^3/ul (0.83-4.51); Mean Corp Hgb Conc 32.4 g/dL (32-36); Mean Corpuscular Hgb 30.7 pg (27.0-32.0); Mean Corpuscular Volume 94.6 fL (81-99); Mean Platelet Vol. 8.4 fl (6.2-12.0); Monocyte# 0.67 X10^3/uL; NRBC Flagged by Analyzer 0 % (0-5); Neutrophil # 9.92 X10^3/uL (2.7-7.7); Neutrophil % 88.9 % (47-70); POSITIVE DIFFERENTIAL YES; Platelet Count 287 K/mm3 (150-450); RBC Distribution Width CV 13.9 % (11.6-14.6); RBC Distribution Width SD 47.6 fl (35.1-43.9); Red Blood Count 3.49 M/mm3 (4.2-5.4); White Blood Count 11.2 K/mm3 (4.4-11.0)
[2024-05-13 11:26] LABS: ALB/GLOB Ratio 1.1 RATIO (0.9-2.4); AST(SGOT) 25 U/L (15-37); Alanine Aminotransfer ALT/SGPT 37 U/L (13-56); Albumin, Serum 3.8 g/dL (3.2-5.0); Alkaline Phosphatase 158 U/L (45-117); Anion Gap 6 (5-15); BUN 11 mg/dL (7-18); BUN/Creat Ratio 16.2 RATIO (10-20); Calcium,Total 9.4 mg/dL (8.5-10.1); Chloride 101 mmol/L (98-107); Creatinine, Serum 0.68 mg/dL (0.55-1.02); EST Glomerular Filtration Rate 90 mL/min (>60); Est Glom Filt Rate - Afr Amer 109 mL/min (>60); Globulin 3.6 g/dL (2.2-4.2); Glucose 105 mg/dL (74-106); Potassium 3.8 mmol/L (3.5-5.1); Protein, Total 7.4 g/dL (6.4-8.2); Sodium Level 137 mmol/L (136-145)
[2024-05-13 11:35] LABS: Lactic Acid 0.7 mmol/L (0.4-1.9)
[2024-05-13 12:14] LABS: Prothrombin Time (Protime)PT. 13.5 SECONDS (11.7-14.9)
[2024-05-13 12:15] LABS: Partial Thromboplast Time 26.9 Seconds (24.1-36.2)
--- NOTE | 2024-05-13 12:46 | RAD_ITS ---
EXAM: XR CHEST, 2 VIEWS CLINICAL INDICATION: fever TECHNIQUE: Frontal and lateral views of the chest. COMPARISON: XR Chest dated 02/08/2023 FINDINGS: LUNGS AND PLEURAL SPACES: Normal. No consolidation or edema. No pneumothorax. No effusion. HEART: Normal heart size. MEDIASTINUM: No mediastinal or hilar mass. BONES/JOINTS: No acute abnormality. RAD/Chest PA and Lateral IMPRESSION: No acute cardiopulmonary abnormality. Electronically Signed: Geovanny Simmons MD at 13:13 EDT ,
[2024-05-13] MEDS: Ketorolac 15 MG/ML Vial IV (13:33)
[2024-05-13] MEDS: Metoclopramide 10 MG/2 ML Vial 5 MG IV (15:27)
[2024-05-13] MEDS: Cefdinir 300 MG Capsule PO (15:28)
[2024-05-13] MEDS: metroNIDAZOLE 500 MG Tablet PO (15:28)
--- NOTE | 2024-05-13 17:58 | ED.RN ---
Fleets administered, unable to scan
== END 2024-05-13 17:30 | disposition home or self-care (01) ==
PROVIDERS: Emergency Provider Emergency Medicine; Visit Provider Emergency Medicine
DX: K59.00 Constipation, unspecified (principal); R50.9 Fever, unspecified; R51.9 Headache, unspecified; N32.89 Other specified disorders of bladder; R11.0 Nausea; Z11.52 Encounter for screening for COVID-19; Z79.899 Other long term (current) drug therapy; Z85.048 Personal history of other malignant neoplasm of rectum, rectosigmoid junction, and anus; Z92.3 Personal history of irradiation; Z92.21 Personal history of antineoplastic chemotherapy
CPT/HCPCS: 71046; 74177; 80053; 81001; 83605; 85025; 85610; 85730; 87040; 87077; 87086; 87088; 87186; 87631; 93005; 96361; 96374; 96375; 99285; J7030; Q9967; A4216

== ENCOUNTER 2024-05-27 17:17 | Inpatient (IN) | payer OTHER, SELFPAY ==
[2024-05-27 17:19] VITALS: BP 105/50; PULSE 101; RESP 16; TEMP 37; O2SAT 99
--- NOTE | 2024-05-27 17:38 | EX.ED.DYSGE1 ---
HPI History of Present Illness Chief Complaint: General Illness Detail of Chief Complaint: Fever and generalized weakness Informant: patient Narrative Narrative: Patient presents to the emergency department with fever and generalized weakness. Patient started feeling poorly last evening. She describes nausea. She had fever last night up to 101 at home. She has no appetite today and she generally feels weak. She recently had her colostomy reversed at [facility] on May 07. Patient has history of colorectal cancer. Patient had some loose stools last week but more formed stools this week. Patient had her sutures removed yesterday. She denies dysuria urgency or frequency. [facility] Medical History (Updated 05/27/24 @ 22:[address] 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 Dry eye Suture material present UTI (urinary tract infection) Dysuria Encounter for chemotherapy management Wears glasses Post-menopausal Cancer Migraine headache History of diverticulitis Non-smoker Chronic cough Ostomy nurse consultation Encounter for education Regional lymph node metastasis present GERD (gastroesophageal reflux disease) Bloody stool Anxiety Diverticulitis Hiatal hernia Home Medications ?Medication ?Instructions ?Recorded ?Last Taken ?Type alprazolam 0.5 mg tablet (Xanax) 0.5 mg PO BID PRN PRN Anxiety 01/06/19 Unknown History multivitamin 1 ea PO DAILY 01/06/19 Unknown History ondansetron HCl 4 mg tablet 4 mg PO Q6H 02/14/23 Unknown History loperamide 2 mg capsule (Imodium 2 mg PO Q6H PRN loose stool 02/25/23 Unknown History A-D) metronidazole 500 mg tablet 500 mg PO Q8H #21 tabs 05/13/24 Unknown Rx sulfamethoxazole 800 1 tab PO Q12.TCU 05/27/24 Unknown History mg-trimethoprim 160 mg tablet tamsulosin 0.4 mg capsule 0.4 mg PO DAILY 05/27/24 Unknown History Allergy/AdvReac Type Severity Reaction Status Date / Time No Known Allergies Allergy Verified 05/27/24 17:18 Family History Father Cancer triple myeloma Brother Kidney disease 3 kidney transplants Surgical History (Updated 05/27/24 @ 18:11 by Mandi Fernández) History of bowel resection Hx of colostomy Hx of hand surgery History of hernia repair Hx of colonoscopy Social History Smoking Status: Never smoker alcohol intake: never substance use type: does not use ROS ROS ED Review of Systems ROS Unobtainable: other Constitutional Constitutional ED: Reports lethargy; Denies chills, fever(s), sweats or weight loss Eyes Eyes: Denies blurry vision, change in vision or diplopia ENT ENT ED: Denies rhinorrhea or sore throat Cardiovascular Cardiovascular: Denies chest pain, orthopnea or racing heartbeat Respiratory/Chest Respiratory/Chest: Denies cough, dyspnea, dyspnea on exertion, orthopnea or sputum Gastrointestinal Gastrointestinal: Reports abdominal pain and nausea; Denies diarrhea or vomiting Genitourinary Genitourinary ED: Denies dysuria, hematuria or urinary frequency Musculoskeletal Musculoskeletal: Denies arthralgias, back pain, myalgias or neck pain Integumentary Denies abscess, Abrasions or rash Neurologic Neurologic: Reports weakness; Denies headache(s) Psychiatric Psychiatric: Denies anxiety, depression or suicidal thoughts Endocrine Endocrinology: Denies polydipsia, polyphagia or polyuria Hematologic/Lymphatic Hematologic/Lymphatic: Denies easy bleeding, easy bruising or lymphadenopathy Allergic/Immunologic Allergic/Immunologic ED: Denies mouth swelling, tongue swelling or urticaria EXAM Physical Exam Const Vital Signs: 05/27/24 17:19 05/27/24 18:07 05/27/24 18:12 Temperature 98.6 F 99.7 F H Temperature Source Oral Oral Pulse Rate 101 H 94 Respiratory Rate 16 25 H Respiratory Effort Normal Respiratory Pattern Normal Blood Pressure 105/50 L 122/60 H Blood Pressure Mean 68 80 Pulse Ox 99 95 Oxygen Delivery Method Room Air Room Air 05/27/24 19:00 05/27/24 20:56 05/27/24 22:00 Temperature 98 F 100 F H 99.9 F H Temperature Source Oral Oral Oral Pulse Rate 102 H 98 98 Respiratory Rate 19 H 18 19 H Respiratory Effort Respiratory Pattern Blood Pressure 124/55 H 136/63 H 114/50 L Blood Pressure Mean 78 87 71 Pulse Ox 99 99 98 Oxygen Delivery Method Room Air Room Air Room Air Positive well nourished and well developed General Appearance ED: well developed and NAD HEENT Reports TM's clear and moist mucous membranes normocephalic and atraumatic; Negative for trauma or tenderness Tympanic Membrane ED: Yes TM's clear Eyes PERRL and EOMs intact bilaterally General Eye ED: Negative for pale conjunctiva or scleral icterus Neck no lymphadenopathy, supple and no JVD General: Negative for tenderness Chest Wall inspection of chest normal and palpation of chest normal Chest: Negative for tenderness Resp normal respiratory effort and clear to auscultation bilaterally Effort and Inspection: Negative for respiratory distress or pain with movement Auscultation: Negative for rhonchi, wheezes or diminished lung sounds Cardio regular rate, regular rhythm, S1 normal heart sound, S2 normal heart sound and no murmurs Peripheral Pulses: pulses 2+ throughout GI normal to inspection, nondistended, normoactive bowel sounds, soft to palpation, non-distended and no masses GI Narrative: Mild diffuse suprapubic tenderness on exam. There is no rebound, rigidity, or peritoneal signs. No mass palpated Back/Spine no CVA tenderness and no thoracic nor lumbar tenderness Extremity normal to inspection General Extremety ED: Negative for edema General Extremity: Negative for edema Neuro oriented x3, CN's II-XII intact bilaterally, no sensory deficits noted and gait normal Sensorium / Orientation: awake, alert, oriented to person, oriented to place and oriented to time Motor Exam: strength 5/5 throughout and strength abnormal Psych mental status grossly normal Skin no rashes or lesions noted and no wounds MDM MDM MDM Narrative Medical decision making narrative: Patient presents with complaint of not feeling well and nausea and some lower abdominal discomfort. In the differential would be UTI or diverticulitis or other acute intra-abdominal process related to recent surgery. Viral URI or syndrome also in the differential. IV line established. CBC with differential obtained showed an elevated white count of 19.6 with hemoglobin 10.1 and platelet count of 513. Chemistries unremarkable other than a slightly depressed potassium at 3.2 for which I did give her 40 mEq of potassium chloride p.o. BUN 10 and creatinine 0.64. Lactate normal at 0.9. Urinalysis without signs of infection. CT scan of the abdomen pelvis with IV contrast obtained showed mild ileus with diffuse fecal retention in the colon. There is thickening of the folds of the cecum and proximal ascending colon with nonspecific colitis. No evidence for small bowel obstruction. Discussed case with gastroenterology Dr. Cox initially who recommended starting patient on Zosyn and vancomycin IV. Initially plan was to admit patient to our facility. Discussed case with hospitalist Dr. Sun who recommended transfer of patient to [facility] where patient had her initial care for her colon cancer resection and reversal of colostomy recently. Family in agreement with plan. Discussed case with [facility] and she was accepted for transfer to their facility Lab Data Attestation: I reviewed the patient's lab results. Labs: Laboratory Results - last 24 hr 05/27/24 18:21 WBC 19.6 H RBC 3.27 L Hgb 10.1 L Hct 30.7 L MCV 93.9 MCH 30.9 MCHC 32.9 RDW Std Deviation 54.1 H RDW Coeff of Nav 15.8 H Plt Count 513 H MPV 8.3 Immature Gran % (Auto) 1.700 H Neut % (Auto) 87.1 H Lymph % (Auto) 4.4 L [place] % (Auto) 6.1 Eos % (Auto) 0.5 Baso % (Auto) 0.2 Absolute Neuts (auto) 17.1 H Absolute Lymphs (auto) 0.86 Nucleated RBC % 0 Sodium 133 L Potassium 3.2 L Chloride 101 Carbon Dioxide 24.0 Anion Gap 9 BUN 10 Creatinine 0.64 Estim Creat Clear Calc 52.40 Est GFR (MDRD) Af Amer 117 Est GFR (MDRD) Non-Af 96 BUN/Creatinine Ratio 15.6 Glucose 129 H Lactic Acid 0.9 Calcium 9.2 Urine Color Yellow Urine Clarity Clear Urine pH 6.0 Ur Specific [place] 1.015 Urine Protein 30 H Urine Glucose (UA) Normal Urine Ketones 5 H Urine Occult Blood Negative Urine Nitrite Negative Urine Bilirubin Negative Urine Urobilinogen Normal Ur Leukocyte Esterase 25 H Urine RBC 0 SEEN Urine WBC 0-5 SEEN Ur Squamous Epith Cells 0-5 SEEN Urine Bacteria 1+ Urine Mucus 0 SEEN Radiography Diagnostic Testing: Clinical Impression(s) from Imaging Studies Abdomen/Pelvis CT 05/27/24 19:40 IMPRESSION: Mild ileus with diffuse fecal retention in the colon.. Thickening of folds of the cecum and proximal ascending colon with nonspecific colitis. No evidence for small bowel obstruction. Other findings as above Electronically Signed: Gee Allison MD at 20:04 EDT Reading Location ID and State: [facility] named [facility] / [place] Tel , Service support , Discharge Plan Triage Chief Complaint: General Illness ED Provider: Elham Mendoza Dx/Rx/DC Orders Clinical Impression: Abdominal pain, Leukocytosis, Fever, Colitis, Ileus Prescriptions: No Action loperamide [Imodium A-D] 2 mg capsule 2 mg PO Q6H PRN (Reason: loose stool) ondansetron HCl 4 mg tablet 4 mg PO Q6H multivitamin 1 EACH tablet 1 ea PO DAILY alprazolam [Xanax] 0.5 MG tablet 0.5 mg PO BID PRN PRN (Reason: Anxiety) metronidazole 500 mg tablet 500 mg PO Q8H Qty: 21 0RF sulfamethoxazole-trimethoprim 800-160 mg tablet 1 tab PO Q12.TCU tamsulosin 0.4 mg capsule 0.4 mg PO DAILY Primary Care Provider: Mojgan Cabrales Referrals: Mojgan Cabrales PA [Primary Care Provider] - Print Language: Occitan Disposition Disposition: DC/Tx to Another Type of HCF
[2024-05-27 18:07] VITALS: BP 122/60; PULSE 94; RESP 25; TEMP 37.6; O2SAT 95
[2024-05-27] MEDS: 0.9% Normal Saline (500mL Bag) 500 ML 1000 ML IV (18:20)
[2024-05-27 18:28] LABS: Mucous, Urine 0 SEEN /hpf (<or=2+); Red Blood Cells-Urine 0 SEEN /hpf (0-5)
[2024-05-27 18:32] LABS: Absolute Lymphocyte Count 0.86 X10^3/uL (0.83-4.51); Absolute Neutrophil Count 17.1 X10^3/uL (2.0-7.7); Basophil# 0.03 X10^3/uL; Basophil% 0.2 % (0-1); Eosinophils% 0.5 % (0-5); Hematocrit 30.7 % (37-47); Hemoglobin 10.1 g/dL (12.0-15.0); Lymphocyte # 0.86 X10^3/ul (0.83-4.51); Lymphocyte % 4.4 % (19-41); Mean Corp Hgb Conc 32.9 g/dL (32-36); Mean Corpuscular Hgb 30.9 pg (27.0-32.0); Mean Corpuscular Volume 93.9 fL (81-99); Mean Platelet Vol. 8.3 fl (6.2-12.0); Monocyte% 6.1 % (0-10); NRBC Flagged by Analyzer 0 % (0-5); Neutrophil # 17.07 X10^3/uL (2.7-7.7); Neutrophil % 87.1 % (47-70); Platelet Count 513 K/mm3 (150-450); RBC Distribution Width CV 15.8 % (11.6-14.6); RBC Distribution Width SD 54.1 fl (35.1-43.9); Red Blood Count 3.27 M/mm3 (4.2-5.4); White Blood Count 19.6 K/mm3 (4.4-11.0)
[2024-05-27 18:35] LABS: Color, Urine Yellow (Yellow); Glucose, Dipstick Normal (Normal); Ketone-Dipstick 5 mg/dl (Negative); Leukocyte Esterase-Dipstick 25 /ul (Negative); Nitrite-Dipstick Negative (Negative); Occult Blood-Urine Negative /ul (Negative); Protein-Dipstick 30 mg/dl (Negative); Specific Gravity, Urine 1.015 (1.002-1.030); Urine Bilirubin Dipstick Negative (Negative); Urine Clarity Clear (Clear); Urine Urobilinogen Normal (Normal)
[2024-05-27 18:44] LABS: Anion Gap 9 (5-15); BUN 10 mg/dL (7-18); BUN/Creat Ratio 15.6 RATIO (10-20); Calcium,Total 9.2 mg/dL (8.5-10.1); Chloride 101 mmol/L (98-107); Creatinine, Serum 0.64 mg/dL (0.55-1.02); EST Glomerular Filtration Rate 96 mL/min (>60); Est Glom Filt Rate - Afr Amer 117 mL/min (>60); Glucose 129 mg/dL (74-106); Potassium 3.2 mmol/L (3.5-5.1); Sodium Level 133 mmol/L (136-145)
[2024-05-27 19:00] VITALS: BP 124/55; PULSE 102; RESP 19; TEMP 36.6; O2SAT 99
[2024-05-27 19:02] LABS: White Blood Cells 0-5 SEEN /hpf (0-5)
[2024-05-27 19:03] LABS: Bacteria 1+ /hpf (None Seen); Squamous Epithelial Cells - UA 0-5 SEEN /hpf (5-10)
--- NOTE | 2024-05-27 19:40 | CT_ITS ---
STUDY: CT ABDOMEN AND PELVIS WITH CONTRAST REASON FOR EXAM: Female, 74 years old. nausea, abdominal pain , recent colostomy reversal RADIATION DOSAGE (If Supplied By Facility): CTDIvol = ( 10.45 ) mGy, DLP = ( 520.00 ) mGycm TECHNIQUE: Transaxial images were obtained from the dome of the diaphragm to the symphysis pubis without oral contrast. IV 100mL Isovue-370 was administered. Sagittal and coronal images were reconstructed. Individualized dose optimization techniques were used for this CT. COMPARISON: None. FINDINGS: The visualized lung bases are unremarkable. The visualized portions of the heart are within normal limits. Nonspecific fatty infiltrated liver without mass or bile duct dilatation. Normal gallbladder and extrahepatic biliary system. Normal spleen. Normal pancreas. Mild ascites in left upper quadrant Normal bilateral adrenal glands. 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 . Tiny cyst in the upper pole of the left kidney which will not require additional imaging Normal visualized stomach. Mild ileus with diffuse fecal retention in colon. There is prominent thickening of the folds of the cecum and proximal ascending colon which may be consistent with nonspecific colitis. Postsurgical changes status post sigmoid resection.. The appendix is visualized and appears normal. Mild atherosclerotic change of the aorta without evidence for aneurysm. Normal inferior vena cava. Normal retroperitoneum. Normal urinary bladder. There is mild fluid within the cul-de-sac Normal abdominal wall. Normal osseous structures. CT/Abdomen/Pelvis W IV Cont ONLY IMPRESSION: Mild ileus with diffuse fecal retention in the colon.. Thickening of folds of the cecum and proximal ascending colon with nonspecific colitis. No evidence for small bowel obstruction. Other findings as above Electronically Signed: Gee Allison MD at 20:04 EDT ,
[2024-05-27 19:44] LABS: Lactic Acid 0.9 mmol/L (0.4-1.9)
[2024-05-27 20:56] VITALS: BP 136/63; PULSE 98; RESP 18; TEMP 37.7; O2SAT 99
[2024-05-27] MEDS: Piperacil/Tazobactam 4.5 GM in 0.9% Normal Saline (100mL MB+) 100 ML IV (21:20)
[2024-05-27] MEDS: Vancomycin HCl 750 MG in 0.9% Normal Saline (250mL Bag) 250 ML 250 MG IV (21:30)
[2024-05-27] MEDS: Potassium Chloride Oral Tablet 20 MEQ 40 MEQ PO (21:36)
[2024-05-27] MEDS: Ondansetron 4 MG/2 ML Vial IV ×2 (21:50→23:44)
[2024-05-27 22:00] VITALS: BP 114/50; PULSE 98; RESP 19; TEMP 37.7; O2SAT 98
--- NOTE | 2024-05-27 22:01 | ED.RN ---
ACCEPTED TO [facility]. [facility] WILL CALL BACK WITH BED AND ACCEPTING DOCTOR.
[2024-05-27 23:00] VITALS: BP 113/51; PULSE 100; RESP 22; TEMP 37.1; O2SAT 96
--- NOTE | 2024-05-27 23:15 | PCM.HOSP.N ---
Hospitalist Note The ER physician called me for admission. Patient had fever last night 101 at home, generalized weakness. Recently she had col[facility] on May 07 with history of colorectal cancer. CT abdomen shows features of ileus, diffuse fecal retention and thickening of noriega of cecum and proximal ascending colon therefore recommended surgical opinion. I further said that patient really better to transfer to [facility] as it seems postsurgical complication of colitis and ileus. If it needs admission, pending transfer I will prefer to to be admitted under surgical service.
[2024-05-27] MEDS: ALPRAZolam 0.5 MG Tablet PO (23:44)
[2024-05-28] VITALS (22 sets, daily range): BP systolic 105–140; BP diastolic 51–101; PULSE 85–105; RESP 16–25; TEMP 36.9–37.9; O2SAT 95–99; BMI 18.7
[2024-05-28] MEDS: Vancomycin 125 MG/5 ML Susp PO.SYRINGE PO ×4 (01:53→21:18)
[2024-05-28] MEDS: Acetaminophen 325 MG Tablet 650 MG PO (04:44)
--- NOTE | 2024-05-28 08:07 | NURSING ---
CALLED [facility], TALKED TO SAMMY. NO BED YET, DISCHARGES ARE PENDING,
--- NOTE | 2024-05-28 10:26 | NURSING ---
CALLED [facility], PATIENT IS NUMBER 1 ON LIST FOR A BED PENDING DISCHARGES. DR LOPEZ
--- NOTE | 2024-05-28 12:48 | ED.RN ---
THIS RN SPOKE WITH SARAH BRUNSON FROM [facility]. SHE CALLED TO GET AN UPDATE ON PT. RN STATES PT IS PREASSIGNED TO THE FLOOR BUT NO ROOM YET. THEY STATE THERE IS STILL A POSSIBILITY OF ADMISSION TODAY DEPENDING ON THE NUMBER OF SURGERIES
[2024-05-28] MEDS: Ondansetron 4 MG/2 ML Vial IV (14:17)
--- NOTE | 2024-05-28 17:25 | HP.PCM.HOS_ITS ---
HPI - General General Date of Service: 05/28/24 Chief Complaint: Abd pain HPI Narrative KAYLEE BENSON, is a 74 F with a history of GERD, rectal cancer status post resection, chemotherapy, radiation with colostomy reversal May [address] Neely through [facility] who presented to [facility] ED 05/27/2024 with fever and generalized weakness. Started feeling poorly the night before and had some abdominal discomfort and nausea and had a temperature of up to 101 at home. She also had been having some more loose stools. Patient had CT abdomen which showed features of ileus, diffuse fecal retention, and thickening of noriega of cecum and proximal ascending colon. Hospitalist contacted and recommended transfer to [facility] where she had her surgery given the colitis and ileus in setting of surgery less than a month ago. Patient accepted but bed pending. Given patient was in ED for prolonged period hospitalist contacted for admission while awaiting bed. While in ED she was found to have C. difficile and started on oral vancomycin. Patient evaluated at bedside and reports she still has a lot of abdominal discomfort, has had loose watery stools and intermittently feels very nauseous but this is helped by Zofran. Had been having fevers but not presently febrile. Has no other acute or focal complaints. [facility] Medical History (Updated 05/27/24 @ 22:[address] Elham Mendoza, ) Anxiety Bloody stool Cancer Chronic cough Dehydration Diverticulitis Drug induced neutropenia Dry eye Dysuria Encounter for chemotherapy management Encounter for education GERD (gastroesophageal reflux disease) Hiatal hernia History of diverticulitis Migraine headache Mucositis (ulcerative) due to antineoplastic therapy Non-smoker Ostomy nurse consultation Post-menopausal Regional lymph node metastasis present Suture material present UTI (urinary tract infection) Wears glasses Home Medications ?Medication ?Instructions ?Recorded ?Last Taken ?Type alprazolam 0.5 mg tablet (Xanax) 0.5 mg PO BID PRN PRN Anxiety 01/06/19 Unknown History multivitamin 1 ea PO DAILY 01/06/19 Unknown History ondansetron HCl 4 mg tablet 4 mg PO Q6H 02/14/23 Unknown History loperamide 2 mg capsule (Imodium 2 mg PO Q6H PRN loose stool 02/25/23 Unknown History A-D) metronidazole 500 mg tablet 500 mg PO Q8H #21 tabs 05/13/24 Unknown Rx sulfamethoxazole 800 1 tab PO Q12.TCU 05/27/24 Unknown History mg-trimethoprim 160 mg tablet tamsulosin 0.4 mg capsule 0.4 mg PO DAILY 05/27/24 Unknown History Allergy/AdvReac Type Severity Reaction Status Date / Time No Known Allergies Allergy Verified 05/27/24 17:18 Family History Father Cancer triple myeloma Brother Kidney disease 3 kidney transplants Surgical History (Updated 05/27/24 @ 18:11 by Mandi Fernández) History of bowel resection History of hernia repair Hx of colonoscopy Hx of colostomy Hx of hand surgery Social History Smoking Status: Never smoker alcohol intake: never substance use type: does not use ROS ROS Narrative General: Had been having fever HENT: Occasionally gets headaches, denies stuffy nose, denies sore throat EYES: Denies changes in vision Resp: Denies cough, denies shortness of breath Cardiac: Denies chest pain GI: Little bit of abdominal discomfort but mostly diarrhea and nausea : Denies changes in urination Extremity: Denies swelling MSK: Some generalized weakness Neuro: Denies any numbness/tingling Heme: Denies any bleeding or bruising Skin: Denies rashes Psychiatric: No complaints voiced Vital Signs Vital Signs Vital Signs: 05/27/24 18:07 05/27/24 18:12 05/27/24 19:00 Temperature 99.7 F H 98 F Temperature Source Oral Oral Pulse Rate 94 102 H Respiratory Rate 25 H 19 H Respiratory Effort Normal Respiratory Pattern Normal Blood Pressure 122/60 H 124/55 H Blood Pressure Mean 80 78 Pulse Ox 95 99 Oxygen Delivery Method Room Air Room Air 05/27/24 20:56 05/27/24 22:00 05/27/24 23:00 Temperature 100 F H 99.9 F H 98.7 F Temperature Source Oral Oral Oral Pulse Rate 98 98 100 Respiratory Rate 18 19 H 22 H Respiratory Effort Respiratory Pattern Blood Pressure 136/63 H 114/50 L 113/51 L Blood Pressure Mean 87 71 71 Pulse Ox 99 98 96 Oxygen Delivery Method Room Air Room Air Room Air 05/28/24 00:00 05/28/24 01:00 05/28/24 01:00 Temperature 98.9 F 98.5 F 98.5 F Temperature Source Oral Temporal Oral Pulse Rate 97 101 H 101 H Respiratory Rate 21 H 22 H 22 H Respiratory Effort Respiratory Pattern Blood Pressure 125/58 H 116/56 L 115/56 L Blood Pressure Mean 80 76 75 Pulse Ox 95 97 97 Oxygen Delivery Method Room Air Room Air Room Air 05/28/24 01:56 05/28/24 03:00 05/28/24 04:00 Temperature 99.5 F H 99.5 F H 100.2 F H Temperature Source Oral Oral Oral Pulse Rate 98 101 H 104 H Respiratory Rate 22 H 25 H 21 H Respiratory Effort Respiratory Pattern Blood Pressure 124/58 H 111/51 L 114/56 L Blood Pressure Mean 80 71 75 Pulse Ox 96 96 95 Oxygen Delivery Method Room Air Room Air Room Air 05/28/24 05:00 05/28/24 06:00 05/28/24 07:00 Temperature 100.1 F H 98.9 F 98.9 F Temperature Source Oral Oral Oral Pulse Rate 101 H 94 90 Respiratory Rate 22 H 18 19 H Respiratory Effort Respiratory Pattern Blood Pressure 114/56 L 106/57 L 105/53 L Blood Pressure Mean 75 73 70 Pulse Ox 96 97 96 Oxygen Delivery Method Room Air Room Air Room Air 05/28/24 08:00 05/28/24 09:00 05/28/24 10:00 Temperature 98.8 F 98.6 F 98.8 F Temperature Source Oral Oral Oral Pulse Rate 94 88 91 Respiratory Rate 18 16 19 H Respiratory Effort Respiratory Pattern Blood Pressure 114/55 L 114/61 115/58 L Blood Pressure Mean 74 78 77 Pulse Ox 96 97 99 Oxygen Delivery Method Room Air Room Air Room Air 05/28/24 11:00 05/28/24 12:00 05/28/24 13:00 Temperature 98.8 F 98.6 F 98.4 F Temperature Source Oral Oral Oral Pulse Rate 95 89 90 Respiratory Rate 16 18 18 Respiratory Effort Respiratory Pattern Blood Pressure 118/55 L 124/63 H 116/58 L Blood Pressure Mean 76 83 77 Pulse Ox 95 99 98 Oxygen Delivery Method Room Air Room Air Room Air 05/28/24 14:16 05/28/24 15:00 05/28/24 15:00 Temperature 99 F 99 F Temperature Source Oral Oral Pulse Rate 105 H 90 90 Respiratory Rate 18 18 16 Respiratory Effort Respiratory Pattern Blood Pressure 140/101 H 108/57 L 108/57 L Blood Pressure Mean 114 74 74 Pulse Ox 98 98 98 Oxygen Delivery Method Room Air Room Air 05/28/24 15:29 05/28/24 16:00 Temperature 99 F 99 F Temperature Source Oral Pulse Rate 90 95 Respiratory Rate 18 19 H Respiratory Effort Respiratory Pattern Blood Pressure 108/57 L 115/62 Blood Pressure Mean 74 79 Pulse Ox 98 98 Oxygen Delivery Method Room Air Weight Weight: 53 kg Body Mass Index (BMI) 20.0 Physical Exam Narrative General: Alert, oriented, no apparent distress HEENT: Atraumatic, normocephalic Eyes: Anicteric, normal conjunctiva, extraocular movements grossly intact Neck: Supple Respiratory: Clear to auscultation bilaterally, normal respiratory effort Cardiovascular: Regular rate and rhythm GI: Soft, no significant tenderness, none distended, no rebound, guarding, rigidity Extremities: No edema Musculoskeletal: Moving all extremities Neuro: No overt focal neurological deficits Skin: No rashes appreciated Psych: Cooperative Results Lab / Micro Data 05/27/24 18:21 05/27/24 18:21 Labs: Laboratory Results - last 24 hr 05/27/24 18:21: WBC 19.6 H, RBC 3.27 L, Hgb 10.1 L, Hct 30.7 L, MCV 93.9, MCH 30.9, MCHC 32.9, RDW Std Deviation 54.1 H, RDW Coeff of Nav 15.8 H, Plt Count 513 H, MPV 8.3, Immature Gran % (Auto) 1.700 H, Neut % (Auto) 87.1 H, Lymph % (Auto) 4.4 L, [place] % (Auto) 6.1, Eos % (Auto) 0.5, Baso % (Auto) 0.2, Absolute Neuts (auto) 17.1 H, Absolute Lymphs (auto) 0.86, Nucleated RBC % 0, Sodium 133 L, Potassium 3.2 L, Chloride 101, Carbon Dioxide 24.0, Anion Gap 9, BUN 10, Creatinine 0.64, Estim Creat Clear Calc 52.40, Est GFR (MDRD) Af Amer 117, Est GFR (MDRD) Non-Af 96, BUN/Creatinine Ratio 15.6, Glucose 129 H, Lactic Acid 0.9, Calcium 9.2, Urine Color Yellow, Urine Clarity Clear, Urine pH 6.0, Ur Specific [place] 1.015, Urine Protein 30 H, Urine Glucose (UA) Normal, Urine Ketones 5 H, Urine Occult Blood Negative, Urine Nitrite Negative, Urine Bilirubin Negative, Urine Urobilinogen Normal, Ur Leukocyte Esterase 25 H, Urine RBC 0 SEEN, Urine WBC 0-5 SEEN, Ur Squamous Epith Cells 0-5 SEEN, Urine Bacteria 1+, Urine Mucus 0 SEEN Micro: Microbiology 05/27/24 23:20 Stool C. difficile GDH Antigen & Toxins - Final Toxigenic C. difficile 05/27/24 23:20 Stool Clostridioides difficile (PCR) - Final 05/27/24 18:21 Mucosa - Nose SARS-CoV-2, Influenza & RSV (PCR) - Final Imaging Radiology Impression Abdomen/Pelvis CT 05/27/24 19:40 IMPRESSION: Mild ileus with diffuse fecal retention in the colon.. Thickening of folds of the cecum and proximal ascending colon with nonspecific colitis. No evidence for small bowel obstruction. Other findings as above Electronically Signed: Gee Allison MD at 20:04 EDT , Assessment & Plan Assessment/Plan (1) Colitis: PLAN: Plan #Cdiff colitis with diarrhea -Patient with mild ileus and diffuse fecal retention in the colon and thickening of the limits of the cecum and proximal ascending colon with nonspecific colitis -White blood cell count 19.6 patient initially febrile -Found to have C. difficile -Started on oral vancomycin -Clear liquid diet given her nausea but nausea is improving -Continue gentle IV fluids given -Pending transfer to [facility] # Rectal cancer status post resection, chemo, radiation with recent colostomy reversal - colostomy reversal May [address] Neely through [facility] -Awaiting transfer to [facility] # Hypokalemia -Replaced -Repeat in the a.m. # Chronic normocytic anemia -Baseline around 11, slightly down from previous, repeat in the a.m., no evidence of ongoing or significant blood loss, will avoid chemoprophylaxis for DVT and after SCDs in the meantime, monitor for any signs or symptoms of bleeding # Hyponatremia -Suspect there may be a component of volume depletion given patient's diarrhea and nausea/poor p.o. intake -Patient being rehydrated -Repeat in the a.m. #DVT ppx: SCDs Adela Devlin MD Time spent in the patient's overall evaluation,decision-making process, review of diagnostic data, adjustment of management, discussion with other providers, nursing nursing and ancillary staff involved in patient's care documentation, 59 Minutes Charges/Coding Visit Charges Inpatient E&M: 06706 Init Hosp L2
--- NOTE | 2024-05-28 18:06 | NURSING ---
MED SURG LEON PSEUDOMEMBRANOUS ENTEROCOLITIS
--- NOTE | 2024-05-28 18:08 | ED.RN ---
This RN called pharmacy regarding the vancomycin and the pharmacist stated they did not get a print out and they are working on it.
[2024-05-28] MEDS: Ensure Clear 120 ML Liquid PO (21:18)
[2024-05-28] MEDS: 0.9% Normal Saline (1000mL) 1,000 ML 75 ML IV (21:19)
[2024-05-28] MEDS: ALPRAZolam 0.5 MG Tablet PO (22:35)
[2024-05-29 00:24] VITALS: BP 127/65; PULSE 98; RESP 16; TEMP 36.7; O2SAT 98
[2024-05-29] MEDS: Vancomycin 125 MG/5 ML Susp PO.SYRINGE PO (00:26)
--- NOTE | 2024-05-29 11:56 | DS.PCM_ITS ---
Providers Date of Admission: 05/28/24 Date of Discharge: 05/29/24 Primary Care Physician: AMY Renner Reason For Visit: CDIFF COLITIS Diagnosis Discharge Diagnosis (1) Colitis: Status: Acute Code(s): K52.9 - Noninfective gastroenteritis and colitis, unspecified Medications at Discharge Home Medications alprazolam 0.5 mg tablet (Xanax) 0.5 mg PO BID PRN PRN Anxiety 01/06/19 multivitamin 1 ea PO DAILY 01/06/19 ondansetron HCl 4 mg tablet 4 mg PO Q6H 02/14/23 loperamide 2 mg capsule (Imodium A-D) 2 mg PO Q6H PRN loose stool 02/25/23 metronidazole 500 mg tablet 500 mg PO Q8H #21 tabs 05/13/24 sulfamethoxazole 800 mg-trimethoprim 160 mg tablet 1 tab PO Q12.TCU 05/27/24 tamsulosin 0.4 mg capsule 0.4 mg PO DAILY 05/27/24 Hospital Course Operations None Procedures - (CT abdomen and pelvis) Summary of Care Provided Hospital Course: Patient is a 74-year-old white female with a history of rectal cancer status post resection, chemotherapy, and radiation with colostomy reversal on May [address] Neely at [facility] who presented to the emergency department at [facility] on 05/27/2024 due to fever and generalized weakness. Upon presentation to the emergency department, her vital signs showed temperature 99.7, heart rate 94, respiratory was 25, blood pressure was 122/60 and pulse ox was 95% on room air. CBC shows a white count of 19.6, hemoglobin of 10.1 which is stable and a left shift with 87.1% neutrophilia. Her chemistry panel showed hyponatremia with a sodium of 133, hypokalemia with a calcium of 3.2, normal renal function and mild hyperglycemia with a blood sugar of 129. This was not fasting. Lactic acid was normal at 0.9. Her UA showed some dehydration but no signs of infection. We were able to collect a stool and she was positive for toxigenic C. difficile both PCR and toxin positive. CT of the abdomen pelvis was performed and showed mild ileus with diffuse fecal retention in the colon, thickening of the folds of the cecum and proximal ascending colon with nonspecific colitis no evidence of small bowel obstruction and other chronic changes but no other acute abnormalities. The ornamental ironworking supervisor was called for admission however with her recent surgical intervention at [facility] it was felt by the ornamental ironworking supervisor that she should be transferred to [facility]. She was transferred and accepted however no bed became available and she was admitted to the hospital on the evening of 05/28/2024. She was started on gentle IV hydration as well as oral vancomycin and clear liquid diet was started giving her nausea. A bed became available early in the morning on 05/29/2024 and she was able to be transferred. She was stable at the time. Weight / BMI Weight Weight: 49.487 kg Body Mass Index (BMI) 18.7 ABG / Lab / Microbiology Data 05/27/24 18:21 05/27/24 18:21 Microbiology: Microbiology 05/27/24 23:20 Stool C. difficile GDH Antigen & Toxins - Final Toxigenic C. difficile 05/27/24 23:20 Stool Clostridioides difficile (PCR) - Final 05/27/24 18:21 Mucosa - Nose SARS-CoV-2, Influenza & RSV (PCR) - Final Meaningful Use Info Meaningful Use Meaningful Use Diagnoses (Choose all that apply): None applicable Ischemic Stroke Statin Dosing Therapy Reference: STATIN DOSE THERAPY REFERENCE: * Patients > 75 years receive moderate or high dose statin therapy. * Patients 75 years or YOUNGER should receive HIGH intensity statin dose unless contraindicated. You will be required to document reason for non-treatment if statin daily dose does not meet guidelines. HIGH DOSE STATIN THERAPY DAILY Atorvastatin > than or = to 40 mg Rosuvastatin > than or = to 20 mg Amlodipine + Atorvastatin > than or = to 2.5/40 mg Ezetimibe + Simvastatin 10/80 mg Simvastatin 80mg Discharge Plan Admission Admit Date/Time: 05/28/24 17:25 Primary Reason for Your Visit: fever/abd pain Attending Provider: Adela Devlin Primary Care Provider: Mojgan Cabrales Discharge Orders/Prescriptions Prescriptions: No Action loperamide [Imodium A-D] 2 mg capsule 2 mg PO Q6H PRN (Reason: loose stool) ondansetron HCl 4 mg tablet 4 mg PO Q6H multivitamin 1 EACH tablet 1 ea PO DAILY alprazolam [Xanax] 0.5 MG tablet 0.5 mg PO BID PRN PRN (Reason: Anxiety) metronidazole 500 mg tablet 500 mg PO Q8H Qty: 21 0RF sulfamethoxazole-trimethoprim 800-160 mg tablet 1 tab PO Q12.TCU tamsulosin 0.4 mg capsule 0.4 mg PO DAILY Referrals / Follow Up: Mojgan Cabrales PA [Primary Care Provider] - Disposition Disposition (needs filled in before D/C Order can be placed): DC/Tx to Another Type of HCF
== END 2024-05-29 01:20 | disposition other institution (70) | DRG 372 ==
LOC: ED 22:32 → MS3 05-28 18:09
PROVIDERS: Admitting Provider Internal Medicine; Emergency Provider Emergency Medicine; Visit Provider Internal Medicine
DX: A04.72 Enterocolitis due to Clostridium difficile, not specified as recurrent (principal); K56.7 Ileus, unspecified; E87.1 Hypo-osmolality and hyponatremia; E86.0 Dehydration; E87.6 Hypokalemia; R73.9 Hyperglycemia, unspecified; Z79.899 Other long term (current) drug therapy; Z85.048 Personal history of other malignant neoplasm of rectum, rectosigmoid junction, and anus; Z92.3 Personal history of irradiation; Z92.21 Personal history of antineoplastic chemotherapy
CPT/HCPCS: 74177; 80048; 81001; 83605; 85025; 87040; 87493; 87631; 94668; 99285; J7030; J7050; Q9967; A4216; J2405

== ENCOUNTER → 2024-06-08 | Outpatient (CLI) | payer SELFPAY ==
--- NOTE | 2024-06-08 08:00 | CT_ITS ---
STUDY: CT CHEST, ABDOMEN T PELVIS WITH CONTRAST REASON FOR EXAM: Female, 74 years old. F/U RECTAL CANCER RADIATION DOSAGE (If Supplied By Facility): CTDIvol = ( 11.51 ) mGy, DLP = ( 710.90 ) mGycm TECHNIQUE: Transaxial imaging was performed following intravenous administration of IV 100mL Isovue-370. The protocol utilizes one or more of the following dose reduction techniques: automated exposure control, adjustment of mA and/or kV according to patient size,and/or use of iterative reconstruction technique. COMPARISON: Prior study dated: 05/27/2024 FINDINGS: CHEST 2 mm left lower lobe nodule for which no further follow-up exam is needed. No other pulmonary nodules are identified. No focal consolidation. There is no demonstrated pleural abnormality. Normal heart and pericardium. Normal mediastinum. Normal hilar regions. Unremarkable Central pulmonary arteries tortuosity of the thoracic aorta without evidence of aneurysm. No evidence of osteolytic or osteoblastic lesions. ABDOMEN Normal liver. Normal gallbladder and extrahepatic biliary system. Normal spleen. Normal pancreas. Normal bilateral adrenal glands. Moderate to severe right and mild left dilated pelvicalyceal systems bilaterally essentially unchanged since prior examinations could be due to bilateral UPJ obstruction. The ureters are not dilated. Unremarkable visualized stomach. Normal small intestine. Normal in caliber small bowel loops. Fecal retention concerning for constipation. Surgical anastomosis sutures in the region of the rectum similar to the prior examinations. The cecum extends to the pelvic region. The appendix is not identified. There is atherosclerotic calcification of the abdominal aorta with elongation and tortuosity, but without a demonstrated aneurysm. Normal inferior vena cava. Normal retroperitoneum. PELVIS Normal urinary bladder. There is no pelvic fluid. There is no pelvic lymphadenopathy or mass lesion. Normal visualized pelvic arteries. Normal abdominal wall. No demonstrated acute osseous changes. CT/CT Chest, Abd, Pel w/Contrast IMPRESSION: 1. No acute pulmonary infiltrate or evidence of pulmonary metastases. 2. Fecal retention concerning for constipation. 3. Postoperative changes in the rectosigmoid colon unchanged appearance since previous exam. 4. Stable dilated pelvicalyceal systems bilaterally worse on the right side unchanged. Electronically Signed: Fady Albrecht MD at 13:29 EDT ,
== END | disposition home or self-care (01) ==
LOC: CT 07:59
PROVIDERS: Referring Provider Internal Medicine Hematology & Oncology; Visit Provider Internal Medicine Hematology & Oncology
DX: C20 Malignant neoplasm of rectum (principal); C77.9 Secondary and unspecified malignant neoplasm of lymph node, unspecified
CPT/HCPCS: 71260; 74177; Q9967

== ENCOUNTER 2024-07-04 16:31 | Emergency (ER) | payer OTHER, SELFPAY ==
[2024-07-04 16:32] VITALS: BP 125/71; PULSE 88; RESP 15; TEMP 36.8; O2SAT 98
[2024-07-04 16:33] VITALS: BMI 20.4
--- NOTE | 2024-07-04 17:09 | EDS_ITS ---
HPI HPI - GI History of Present Illness Chief Complaint: Abd Pain Informant: patient Abdominal Pain/Flank Pain Onset: Today Context: Gradual Onset Timing: Continuous Quality: Burning, Sharp and Stabbing Location: RLQ and - (Low back) Worsened by: Nothing Relieved by: Remaining Still Nausea/Vomiting/Emesis GI Symptom: Positive for Nausea and Vomiting Diarrhea/Melena/Hematochezia GI Symptom: Negative for Diarrhea, Melena or Hematochezia Associated Symptoms Associated Symptoms: Negative for Dysuria, Frequency or Hematuria Narrative Narrative: Patient presents with abdominal pain and back pain that began today. Patient states it came on gradually. Patient states it has been constant. Patient states it started in her back and radiated to her right lower abdomen. Patient describes it as sharp, burning, and stabbing. Patient states it is better when she is able to lay still. Patient states she took some Tylenol which helped somewhat. Patient states nothing makes it worse. Patient admits to some nausea and vomiting. Patient states she has been having some dry heaves. Patient denies any hematemesis or coffee-ground emesis. Patient denies any diarrhea, melena, or hematochezia. Patient states she is currently being treated for C. difficile with vancomycin. Patient states she has not had any diarrhea in the past few days. Patient denies any urinary complaints. [facility] Medical History (Updated 07/04/24 @ 21:[address] Dileep Guzman, ) C. 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 Encounter for education Regional lymph node metastasis present GERD (gastroesophageal reflux disease) Bloody stool Anxiety Diverticulitis Hiatal hernia Home Medications ?Medication ?Instructions ?Recorded ?Last Taken ?Type alprazolam 0.5 mg tablet (Xanax) 0.5 mg PO BID PRN PRN Anxiety 01/06/19 Unknown History multivitamin 1 ea PO DAILY 01/06/19 Unknown History ondansetron HCl 4 mg tablet 4 mg PO Q6H 02/14/23 Unknown History calcium polycarbophil 625 mg 1,250 mg PO BID 06/30/24 Unknown History tablet (FiberCon) vancomycin 125 mg capsule 125 mg PO Q6H 06/30/24 Unknown History Allergy/AdvReac Type Severity Reaction Status Date / Time No Known Allergies Allergy Verified 07/04/24 16:32 Family History Father Cancer triple myeloma Brother Kidney disease 3 kidney transplants Surgical History (Updated 07/04/24 @ 17:[address] Dileep Guzman DO) History of colostomy reversal History of bowel resection Hx of colostomy Hx of hand surgery History of hernia repair Hx of colonoscopy Social History Smoking Status: Never smoker alcohol intake: never substance use type: does not use ROS ROS ED Constitutional Constitutional ED: Denies chills or fever(s) Eyes Eyes: Denies blurry vision or change in vision ENT ENT ED: Denies rhinorrhea or sore throat Cardiovascular Cardiovascular: Denies chest pain or palpitations Respiratory/Chest Respiratory/Chest: Denies cough or dyspnea Gastrointestinal Gastrointestinal: Reports abdominal pain, nausea and vomiting; Denies diarrhea or melena Genitourinary Genitourinary ED: Denies dysuria or hematuria Musculoskeletal Musculoskeletal: Denies back pain or neck pain Integumentary Denies abscess or rash Neurologic Neurologic: Denies headache(s) or weakness Allergic/Immunologic Allergic/Immunologic ED: Denies mouth swelling or urticaria EXAM Physical Exam Const Vital Signs: 07/04/24 16:32 07/04/24 18:00 07/04/24 18:37 Temperature 98.2 F 98.2 F Temperature Source Oral Oral Pulse Rate 88 78 78 Respiratory Rate 15 18 16 Blood Pressure 125/71 H 117/59 L 134/78 H Blood Pressure Mean 89 78 96 Pulse Ox 98 98 98 Oxygen Delivery Method Room Air Room Air Room Air Positive well nourished and well developed General Appearance ED: well developed and NAD HEENT Reports moist mucous membranes normocephalic Neck supple and no JVD Resp normal respiratory effort and clear to auscultation bilaterally Cardio regular rate and regular rhythm GI non-distended Palpation: soft and tender LLQ, RLQ, RUQ, periumbilical and suprapubic; Negative for guarding or rebound tenderness present Neuro CN's II-XII intact bilaterally, moves all extremities and no sensory deficits noted Sensorium / Orientation: alert Motor Exam: strength 5/5 throughout Psych mental status grossly normal and thought process normal MDM MDM MDM Narrative Medical decision making narrative: Differential diagnosis include appendicitis, urinary tract infection, ureteral calculus, diverticulitis, pyelonephritis, colitis, bowel obstruction, and perforation. CBC will be obtained to assess for leukocytosis and anemia. Comprehensive metabolic profile will be obtained to assess for electrolyte abnormality, hepatic function, and renal function. Urinalysis will be obtained to assess for urinary tract infection and hematuria. CT scan of the abdomen and pelvis will be obtained to assess for diverticulitis, appendicitis, colitis, ureteral calculus, bowel obstruction, and perforation. Lab Data Attestation: I reviewed the patient's lab results. Lab results narrative: CBC was reviewed. There is a mild leukocytosis of 12.3. Hemoglobin was slightly low at 11.1 and hematocrit was 34.8. Comprehensive metabolic profile was reviewed and was essentially within normal limits. Urinalysis was reviewed. Leukocyte esterase was 25. There are 10-25 white blood cells. There are 0-5 epithelial cells. Urine ketones were 150. Labs: Laboratory Results - last 24 hr 07/04/24 07/04/24 17:25 17:36 WBC 12.3 H RBC 3.73 L Hgb 11.1 L Hct 34.8 L MCV 93.3 MCH 29.8 MCHC 31.9 L RDW Std Deviation 50.6 H RDW Coeff of Nav 14.6 Plt Count 432 MPV 8.2 Immature Gran % (Auto) 1.100 H Neut % (Auto) 85.9 H Lymph % (Auto) 7.6 L [place] % (Auto) 4.9 Eos % (Auto) 0.1 Baso % (Auto) 0.4 Absolute Neuts (auto) 10.5 H Absolute Lymphs (auto) 0.93 Nucleated RBC % 0 Sodium 135 L Potassium 4.0 Chloride 100 Carbon Dioxide 26.0 Anion Gap 9 BUN 12 Creatinine 0.55 Estim Creat Clear Calc 53.29 Est GFR (MDRD) Af Amer 140 Est GFR (MDRD) Non-Af 116 BUN/Creatinine Ratio 21.9 H Glucose 103 Calcium 9.0 Total Bilirubin 0.20 AST 23 ALT 38 Alkaline Phosphatase 133 H Total Protein 6.4 Albumin 3.1 L Globulin 3.3 Albumin/Globulin Ratio 0.9 Urine Color Straw Urine Clarity Clear Urine pH 6.0 Ur Specific [place] 1.015 Urine Protein 15 H Urine Glucose (UA) Normal Urine Ketones 150 A* Urine Occult Blood Negative Urine Nitrite Negative Urine Bilirubin Negative Urine Urobilinogen Normal Ur Leukocyte Esterase 25 H Urine RBC 0 SEEN Urine WBC 10-25 SEEN Ur Squamous Epith Cells 0-5 SEEN Urine Bacteria 0 SEEN Urine Mucus 0 SEEN Radiography Diagnostic Testing: Clinical Impression(s) from Imaging Studies Abdomen/Pelvis CT 07/04/24 17:21 IMPRESSION: Bilateral hydronephrosis, greater than prior. Her to large stool burden. Electronically Signed: Sana Harrison MD at 19:21 EST , CT scan of the abdomen pelvis was obtained. There is bilateral hydronephrosis. There is moderate to large stool burden. There is no evidence of obstruction or perforation. There is no free air or free fluid. This was interpreted by the radiologist and was also independently reviewed by myself. Treatment and Re-Evaluation :: Patient was given IV fluids, morphine, and Zofran. Patient was given a soapsuds enema. Patient had minimal results with this. Patient was advised of her findings. Patient was instructed to continue using fleets enemas at home. Patient was instructed to follow-up with her primary care physician in 5 to 7 days. Patient was instructed return if worse in any way. Patient understood and was agreeable with the plan. All questions were answered. Discharge Plan Triage Chief Complaint: Abd Pain ED Provider: Dileep Guzman Dx/Rx/DC Orders Clinical Impression: Acute constipation, Dehydration Instructions: ED Constipation (Adult) Prescriptions: No Action ondansetron HCl 4 mg tablet 4 mg PO Q6H vancomycin 125 mg capsule 125 mg PO Q6H Rx Instructions: 14 days calcium polycarbophil [FiberCon] 625 mg tablet 1,250 mg PO BID multivitamin 1 EACH tablet 1 ea PO DAILY alprazolam [Xanax] 0.5 MG tablet 0.5 mg PO BID PRN PRN (Reason: Anxiety) Primary Care Provider: Mojgan Cabrales Referrals: Mojgan Cabrales PA [Primary Care Provider] - 3-5 Days Print Language: Nigerien Disposition Disposition: Home, Self Care
--- NOTE | 2024-07-04 17:21 | CT_ITS ---
EXAM: CT ABDOMEN AND PELVIS WITH INTRAVENOUS CONTRAST CLINICAL INDICATION: Abdominal pain TECHNIQUE: Helically acquired images were obtained of the abdomen and pelvis with intravenous contrast. This CT exam was performed using one or more of the following dose reduction techniques: automated exposure control, adjustment of the mA and/or kV according to patient size, and/or use of iterative reconstruction technique. CONTRAST: IV 75mL Isovue-370 COMPARISON: 06/08/2024. FINDINGS: LOWER THORAX: Unremarkable. Lung bases are clear. No cardiomegaly. No significant pericardial effusion. ABDOMEN: LIVER: Unremarkable. Homogeneous. No focal mass. GALLBLADDER AND BILE DUCTS: Unremarkable. No calcified gallstones. No gallbladder distention or wall edema. No intra- or extrahepatic biliary ductal dilation. PANCREAS: Unremarkable. No focal cystic or solid mass. SPLEEN: Unremarkable. Normal size without focal cystic or solid mass. ADRENALS: Unremarkable. No nodules. KIDNEYS AND URETERS: Marked right hydronephrosis with a normal ureter, markedly increased compared to the prior study. Mild left hydronephrosis with a normal ureter, mildly increased compared to prior. No obstructing mass or stone. Normal renal size and position. STOMACH AND BOWEL: Moderate to large stool burden. Prior rectal anastomosis. No stomach or bowel distention. No focal inflammatory change. PELVIS: APPENDIX: Normal visualized appendix. BLADDER: Unremarkable. REPRODUCTIVE: Unremarkable as visualized. No mass. ABDOMEN and PELVIS: INTRAPERITONEAL SPACE: Unremarkable. No ascites or other fluid collection. No free air. BONES/JOINTS: Unremarkable. No suspicious lytic or blastic abnormality. SOFT TISSUES: Unremarkable. No discrete abdominal or pelvic wall hernia. VASCULATURE: Unremarkable. Abdominal aorta is normal in caliber. LYMPH NODES: Unremarkable. No enlarged lymph nodes. CT/Abdomen/Pelvis W IV Cont ONLY IMPRESSION: Bilateral hydronephrosis, greater than prior. Her to large stool burden. Electronically Signed: Sana Harrison MD at 19:21 EST Reading Location ID and State: [id number] / Tel , Service support ,
[2024-07-04 17:39] LABS: Absolute Lymphocyte Count 0.93 X10^3/uL (0.83-4.51); Absolute Neutrophil Count 10.5 X10^3/uL (2.0-7.7); Basophil# 0.05 X10^3/uL; Basophil% 0.4 % (0-1); Eosinophil# 0.01 X10^3/uL; Eosinophils% 0.1 % (0-5); Hematocrit 34.8 % (37-47); Hemoglobin 11.1 g/dL (12.0-15.0); Lymphocyte # 0.93 X10^3/ul (0.83-4.51); Lymphocyte % 7.6 % (19-41); Mean Corp Hgb Conc 31.9 g/dL (32-36); Mean Corpuscular Hgb 29.8 pg (27.0-32.0); Mean Corpuscular Volume 93.3 fL (81-99); Mean Platelet Vol. 8.2 fl (6.2-12.0); Monocyte% 4.9 % (0-10); NRBC Flagged by Analyzer 0 % (0-5); Neutrophil # 10.54 X10^3/uL (2.7-7.7); Neutrophil % 85.9 % (47-70); Platelet Count 432 K/mm3 (150-450); RBC Distribution Width CV 14.6 % (11.6-14.6); RBC Distribution Width SD 50.6 fl (35.1-43.9); Red Blood Count 3.73 M/mm3 (4.2-5.4); White Blood Count 12.3 K/mm3 (4.4-11.0)
[2024-07-04] MEDS: 0.9% Normal Saline (1000mL) 1,000 ML 999 ML IV (17:40)
[2024-07-04] MEDS: Ondansetron 4 MG/2 ML Vial IV (17:40)
[2024-07-04 17:44] VITALS: BMI 20.4
[2024-07-04] MEDS: Morphine 4 MG/ML Syringe IV (17:50)
[2024-07-04 17:55] LABS: Bacteria 0 SEEN /hpf (None Seen); Mucous, Urine 0 SEEN /hpf (<or=2+); Red Blood Cells-Urine 0 SEEN /hpf (0-5)
[2024-07-04 17:55] LABS: ALB/GLOB Ratio 0.9 RATIO (0.9-2.4); AST(SGOT) 23 U/L (15-37); Alanine Aminotransfer ALT/SGPT 38 U/L (13-56); Albumin, Serum 3.1 g/dL (3.2-5.0); Alkaline Phosphatase 133 U/L (45-117); Anion Gap 9 (5-15); BUN 12 mg/dL (7-18); BUN/Creat Ratio 21.9 RATIO (10-20); Chloride 100 mmol/L (98-107); Creatinine, Serum 0.55 mg/dL (0.55-1.02); EST Glomerular Filtration Rate 116 mL/min (>60); Est Glom Filt Rate - Afr Amer 140 mL/min (>60); Estimated Creatinine Clearance 53.29 ml/min; Globulin 3.3 g/dL (2.2-4.2); Glucose 103 mg/dL (74-106); Protein, Total 6.4 g/dL (6.4-8.2); Sodium Level 135 mmol/L (136-145)
[2024-07-04 18:00] VITALS: BP 117/59; PULSE 78; RESP 18; TEMP 36.8; O2SAT 98
[2024-07-04 18:06] LABS: Color, Urine Straw (Yellow); Glucose, Dipstick Normal (Normal); Leukocyte Esterase-Dipstick 25 /ul (Negative); Nitrite-Dipstick Negative (Negative); Occult Blood-Urine Negative /ul (Negative); Protein-Dipstick 15 mg/dl (Negative); Specific Gravity, Urine 1.015 (1.002-1.030); Urine Bilirubin Dipstick Negative (Negative); Urine Clarity Clear (Clear); Urine Urobilinogen Normal (Normal)
[2024-07-04 18:32] LABS: Squamous Epithelial Cells - UA 0-5 SEEN /hpf (5-10); White Blood Cells 10-25 SEEN /hpf (0-5)
[2024-07-04 18:33] LABS: Ketone-Dipstick 150 mg/dl (Negative)
[2024-07-04 18:37] VITALS: BP 134/78; PULSE 78; RESP 16; O2SAT 98
[2024-07-04] MEDS: Ketorolac 15 MG/ML Vial IV (20:42)
[2024-07-04 21:32] VITALS: BP 129/74; PULSE 80; RESP 16; TEMP 36.7; O2SAT 98
== END 2024-07-04 21:33 | disposition home or self-care (01) ==
PROVIDERS: Emergency Provider Emergency Medicine; Visit Provider Emergency Medicine
DX: K59.00 Constipation, unspecified (principal); E86.0 Dehydration; A04.72 Enterocolitis due to Clostridium difficile, not specified as recurrent; R11.2 Nausea with vomiting, unspecified; R10.31 Right lower quadrant pain
CPT/HCPCS: 74177; 80053; 81001; 85025; 87086; 87088; 96361; 96374; 96375; 99284; J7030; Q9967; A4216; J2405

== ENCOUNTER → 2024-09-07 | Outpatient (CLI) | payer SELFPAY ==
[2024-09-07 12:15] LABS: Absolute Lymphocyte Count 1.07 X10^3/uL (0.83-4.51); Absolute Neutrophil Count 2.7 X10^3/uL (2.0-7.7); Basophil# 0.03 X10^3/uL; Basophil% 0.7 % (0-1); Eosinophils% 2.3 % (0-5); Hematocrit 39.6 % (37-47); Hemoglobin 12.6 g/dL (12.0-15.0); Lymphocyte # 1.07 X10^3/ul (0.83-4.51); Lymphocyte % 24.6 % (19-41); Mean Corp Hgb Conc 31.8 g/dL (32-36); Mean Corpuscular Volume 91.2 fL (81-99); Mean Platelet Vol. 8.9 fl (6.2-12.0); Monocyte# 0.42 X10^3/uL; Monocyte% 9.7 % (0-10); NRBC Flagged by Analyzer 0 % (0-5); Neutrophil # 2.72 X10^3/uL (2.7-7.7); Neutrophil % 62.5 % (47-70); Platelet Count 250 K/mm3 (150-450); RBC Distribution Width CV 14.3 % (11.6-14.6); RBC Distribution Width SD 47.6 fl (35.1-43.9); Red Blood Count 4.34 M/mm3 (4.2-5.4); White Blood Count 4.4 K/mm3 (4.4-11.0)
[2024-09-07 13:11] LABS: AST(SGOT) 20 U/L (15-37); Alanine Aminotransfer ALT/SGPT 32 U/L (13-56); Albumin, Serum 3.8 g/dL (3.2-5.0); Alkaline Phosphatase 106 U/L (45-117); Anion Gap 3 (5-15); BUN 16 mg/dL (7-18); BUN/Creat Ratio 25.8 RATIO (10-20); Calcium,Total 9.5 mg/dL (8.5-10.1); Chloride 103 mmol/L (98-107); Creatinine, Serum 0.62 mg/dL (0.55-1.02); EST Glomerular Filtration Rate 100 mL/min (>60); Est Glom Filt Rate - Afr Amer 121 mL/min (>60); Globulin 3.7 g/dL (2.2-4.2); Glucose 92 mg/dL (74-106); Potassium 3.8 mmol/L (3.5-5.1); Protein, Total 7.5 g/dL (6.4-8.2); Sodium Level 140 mmol/L (136-145)
[2024-09-08 04:06] LABS: Carcinoembryonic Antigen 1.5 ng/mL (0.0-4.7)
== END | disposition home or self-care (01) ==
PROVIDERS: Referring Provider Internal Medicine Hematology & Oncology; Visit Provider Internal Medicine Hematology & Oncology
DX: C20 Malignant neoplasm of rectum (principal)
CPT/HCPCS: 36415; 80053; 82378; 85025

== ENCOUNTER → 2024-11-30 | Outpatient (CLI) | payer SELFPAY ==
--- NOTE | 2024-11-30 08:13 | CT_ITS ---
PROCEDURE: CT CHEST, ABD, PEL W/CONTRAST 11/30/2024 REASON FOR EXAM: H/O RECTAL CA; SURVEILLANCE Chemo and radiation therapy. Prior bowel resection with colostomy and reversal. TECHNIQUE: Chest, abdomen and pelvis CT with intravenous contrast. Coronal and Sagittal reconstruction series were provided. One or more dose reduction techniques were used (e.g., Automated exposure control, adjustment of the mA and/or kV according to patient size, use of iterative reconstruction technique. PATIENT PREPARATION: Per protocol ORAL CONTRAST TYPE: Given. CONTRAST: Isovue-300 VOLUME: 100mL RADIATION DOSE SUMMARY: CTDlvol: 10 mGy DLP: 805.94 mGycm COMPARISON: Comparison is made with prior study dated June 08, 2024. FINDINGS: CT CHEST: Hardware: None Lymph nodes: No significant lymph nodes are seen. Heart and Vasculature: The heart is not enlarged. No coronary artery calcification seen. Lungs and Airways: Hyperinflation. No focal mass or consolidation is present. Stable scarring in the lung apices. Pleura: Unremarkable Bones: Degenerative changes of the thoracic spine. Increased kyphosis. CT ABDOMEN/PELVIS: Liver: Normal size. No mass. Gallbladder: Unremarkable. Spleen: Normal size. Pancreas: Normal size without evidence of mass surrounding inflammation or ductal dilation. Adrenals: Unremarkable Kidneys: Stable 1 cm cyst in the posterior upper pole of the left kidney. Marked degree of right hydronephrosis. The right ureter is not dilated. Stable moderate degree of left hydronephrosis. Bilateral ureteropelvic junction obstruction should be ruled out. Bladder: Bladder is almost empty. Reproductive Organs: Unremarkable. Bowel: Prior surgical anastomosis seen in the rectum. Appendix: The appendix is not identified. There is no inflammatory process identified in the right lower quadrant to suggest appendicitis. Lymph nodes: Unremarkable. Vasculature: Mild diffuse atherosclerotic calcifications are noted. Peritoneum / Retroperitoneum: Unremarkable. Bones: Loss of the normal lumbar lordosis. Loss of height of the superior endplate of the L5 vertebra with sclerosis. CT/CT Chest, Abd, Pel w/Contrast IMPRESSION: Stable examination. Reading Location: [place] [id number]
== END | disposition home or self-care (01) ==
LOC: CT 08:11
PROVIDERS: Referring Provider Nurse Practitioner Family; Visit Provider Nurse Practitioner Family
DX: C20 Malignant neoplasm of rectum (principal); C77.9 Secondary and unspecified malignant neoplasm of lymph node, unspecified
CPT/HCPCS: 71260; 74177; Q9967

== ENCOUNTER → 2025-06-07 | Outpatient (CLI) | payer SELFPAY ==
--- NOTE | 2025-06-07 08:45 | CT_ITS ---
PROCEDURE: CT CHEST, ABD, PEL W/CONTRAST 06/07/2025 REASON FOR EXAM: IV/ORAL CONTRAST;RECTAL CA SURVEILLANCE Rectal cancer surveillance TECHNIQUE: Chest, abdomen and pelvis CT with intravenous contrast. Coronal and Sagittal reconstruction series were provided. One or more dose reduction techniques were used (e.g., Automated exposure control, adjustment of the mA and/or kV according to patient size, use of iterative reconstruction technique. PATIENT PREPARATION: Per protocol ORAL CONTRAST TYPE: Oral contrast is administered CONTRAST: Isovue 370 VOLUME: 100mL RADIATION DOSE SUMMARY: DLP: 562.27 mGycm COMPARISON: Previous CT chest abdomen and pelvis dated 11/30/2024 FINDINGS: CT CHEST: Hardware: None Lymph nodes: No axillary, mediastinal, supraclavicular or hilar lymphadenopathy. Heart and Vasculature: Mild cardiomegaly. Coronary arterial calcifications along the LAD. No pericardial or pleural effusion. Normal ascending and descending aorta. No dissection. Lungs and Airways: No suspicious pulmonary nodule or mass. No focal consolidation. Patent airway. No endobronchial lesion. Pleura: No pneumothorax or effusion. Bones: Multilevel degenerative disc disease and spondylosis. No fracture. No destructive process. CT ABDOMEN/PELVIS: Liver: The liver is normal in size and demonstrates normal enhancement. There is no mass. Patent portal and hepatic veins demonstrated. Gallbladder: Normal gallbladder and biliary tree. Spleen: Normal appearance of the spleen with no mass. Pancreas: Normal size without evidence of mass surrounding inflammation or ductal dilation. Adrenals: No mass. Kidneys: Stable bilateral hydronephrosis [id number]-left with normal caliber at the proximal and distal ureters suggestive of chronic UPJ obstruction. Stable cyst in the posterior upper pole of the left kidney. Bladder: Decompressed. Reproductive Organs: Normal uterus. Small follicle in the right ovary measuring 1.7 cm. Normal left adnexa. Bowel: Surgical suture anastomosis at the rectosigmoid junction. Large amount of stool in the colon. Redundant transverse colon. Appendix: Normal Lymph nodes: No pelvic or retroperitoneal lymphadenopathy. Vasculature: Atherosclerosis. No aneurysm. Peritoneum / Retroperitoneum: No ascites or peritoneal implant Bones: Loss of vertebral body height and the superior endplate of L5 with increased sclerosis and Schmorl's node. This is stable.. No acute fracture. Degenerative changes of both hips with a fluid collection to superior lateral to the right acetabulum measuring 2 cm. Mild focal infiltrative sclerosis along the left sacral ala new since previous exam. No abnormality of the soft tissues. CT/CT Chest, Abd, Pel w/Contrast IMPRESSION: New area of permeative sclerosis seen along the left sacral ala. This is nonsp ecific but neoplastic process can not be excluded. Correlate with any prior history of radiation. Consider dedicated evaluation w ith either bone scintigraphy or contrast-enhanced MR for further evaluation. Otherwise stable exam with no evidence of metastatic disease in the soft tissue s of the chest, abdomen or pelvis. Reading Location: [id number]
[2025-06-07 09:38] LABS: Hematocrit 37.6 % (37-47); Hemoglobin 12.2 g/dL (12.0-15.0); Immature Granulocytes Count 0.010 X10^3/uL (0.0-0.0); Mean Corp Hgb Conc 32.4 g/dL (32-36); Mean Corpuscular Volume 92.6 fL (81-99); Mean Platelet Vol. 9.0 fl (6.2-12.0); NRBC Flagged by Analyzer 0 % (0-5); Platelet Count 250 K/mm3 (150-450); RBC Distribution Width CV 13.7 % (11.6-14.6); RBC Distribution Width SD 47.1 fl (35.1-43.9); Red Blood Count 4.06 M/mm3 (4.2-5.4); White Blood Count 3.0 K/mm3 (4.4-11.0)
[2025-06-07 10:11] LABS: AST(SGOT) 25 U/L (<=31); Alanine Aminotransfer ALT/SGPT 28 U/L (<=34); Albumin, Serum 4.5 g/dL (3.4-4.8); Alkaline Phosphatase 84 U/L (35-104); Anion Gap 7 (5-15); BUN 12 mg/dL (4-19); BUN/Creat Ratio 19.0 RATIO (10-20); Calcium,Total 9.6 mg/dL (7.6-11.0); Carbon Dioxide 29.9 mmol/L (21.0-32.0); Chloride 96 mmol/L (98-108); Globulin 2.4 g/dL (2.2-4.2); Glucose 87 mg/dL (70-99); Potassium 5.3 mmol/L (3.3-5.1)
[2025-06-08 04:07] LABS: Carcinoembryonic Antigen 1.5 ng/mL (0.0-4.7)
== END | disposition home or self-care (01) ==
PROVIDERS: Referring Provider Nurse Practitioner Family; Visit Provider Nurse Practitioner Family
DX: C20 Malignant neoplasm of rectum (principal); C77.9 Secondary and unspecified malignant neoplasm of lymph node, unspecified
CPT/HCPCS: 36415; 71260; 74177; 80053; 82378; 85025; Q9967

== ENCOUNTER → 2025-06-25 | Outpatient (CLI) | payer SELFPAY ==
--- NOTE | 2025-06-25 08:31 | NM_ITS ---
PROCEDURE: BONE SCAN WHOLE BODY 06/25/2025 REASON FOR EXAM: NEW L SACRUM SCLEROSI ON CT TECHNIQUE: Procedure Code: NMBO Modality: NM Procedure: BONE SCAN WHOLE BODY Delayed whole-body bone scan with anterior and posterior views. RADIOPHARMACEUTICAL: 26 mCi Technetium-99m MDP IV COMPARISON: None. FINDINGS: Asymmetrically increased right renal collecting system activity is seen, which correlates well with the very large renal pelvis seen on the CT examination of 06/07/2025. A mild degree of thoracolumbar dextroscoliosis is present. No area of abnormal uptake is seen in the reported area of concern of the left sacrum. No findings are seen to suggest the presence of osseous metastatic disease. NM/Bone Scan Whole Body IMPRESSION: 1. No scintigraphic evidence of osseous metastatic disease. 2. No abnormal uptake is seen of the area of concern of the left sacrum. Reading Location: [place] [id number]
== END | disposition home or self-care (01) ==
LOC: NM 08:29
PROVIDERS: Referring Provider Internal Medicine Hematology & Oncology; Visit Provider Internal Medicine Hematology & Oncology
DX: C20 Malignant neoplasm of rectum (principal); C77.9 Secondary and unspecified malignant neoplasm of lymph node, unspecified; R93.89 Abnormal findings on diagnostic imaging of other specified body structures
CPT/HCPCS: 78306; A9503

== ENCOUNTER 2025-06-28 10:10 | Day surgery (SDC) | payer SELFPAY ==
--- NOTE | 2025-06-24 14:49 | PAT.ANE_ITS ---
Pre-Assessment Diagnosis/Proposed Procedure Planned Operative Procedure(s): COLONOSCOPY Anesthesia History Anesthesia History - manager gallery: Anesthesia History - manager gallery Hx Hospitalization No 06/24/25 14:16 Any Problems With Anesthesia No 06/24/25 14:16 Cholinesterase deficiency No 06/24/25 14:16 You/Your Family Experience No 06/24/25 14:16 fever (hyperthermia) with Relationship Recent Exposure to Contagious No 02/08/23 09:02 Disease Does patient have nerve No 06/24/25 14:16 stimulator Patient instructed to have device shut off --Does patient have Pacemaker or ICD? When Was Last Pacemaker Check QUESTION #4 FULL TEXT: You/Your Family Experience fever (hyperthermia) with Anesthesia Last Oral Intake Last Oral intake: Last Oral Intake NPO since Meds taken in AM with sips of water? Meds patient instructed to take am of surgery PONV PONV - manager gallery: PONV - manager gallery Female Yes 06/24/25 14:16 HX of Motion Sickness No 06/24/25 14:16 HX of N/V After Surgery Yes 06/24/25 14:16 Non-Smoker Yes 06/24/25 14:16 Duration of Surgery greater No 06/24/25 14:16 than 60 minutes Number of Risk Factors 3 06/24/25 14:16 PONV Score Moderate Risk 06/24/25 14:16 Height & Weight Height & Weight: Anesthesia: Height & Weight Height 5 ft 4 in 03/08/25 16:12 Respiratory Assessment Respiratory Assessment - manager gallery: Respiratory Tract Infection Hx - manager gallery Hx Respiratory Tract Infection No 06/24/25 14:16 STOP Sleep Apnea STOP Sleep Apnea - manager gallery: STOP Sleep Apnea - manager gallery Hx Hypertension No 06/24/25 14:16 Hx Sleep Apnea No 06/24/25 14:16 CPAP BIPAP Do you snore loudly (louder No 06/24/25 14:16 than talking or can be heard Do you often feel tired/ No 06/24/25 14:16 fatigued/ sleepy during daytime? Has anyone observed you stop No 06/24/25 14:16 breathing during sleep? STOP Results Negative 06/24/25 14:16 QUESTION #5 FULL TEXT : Do you snore loudly (louder than talking or can be heard through closed doors)? 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 Specify any problems Hx of Preganancy in last 3 No 06/24/25 14:16 Months Nurse Filling Out Transfusion ALEXANDREA 06/24/25 14:16 & Questions: Date: 06/24/25 06/24/25 14:16 Time: 14:18 06/24/25 14:16 Patient unable to answer at this time (ie. confused, unrespo /Reproduction History /Reproductive History - manager gallery: /Reproductive Hx- manager gallery Hx Now Gestational Age (in weeks): EDC: Hx Hx Para Hx Section SAB No 06/24/25 14:16 Does the father of the baby or his family experience fever w Father of the baby Malignant Hypertension history comment [facility] Medical History (Updated 06/24/25 @ 14:25 by Renetta Trejo) History of Clostridium difficile infection PONV (postoperative nausea and vomiting) Shortness of breath on exertion C. 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 Encounter for education Regional lymph node metastasis present GERD (gastroesophageal reflux disease) Bloody stool Anxiety Diverticulitis Hiatal hernia Home Medications Medication Instructions Recorded Last Taken Type alprazolam 0.5 mg tablet (Xanax) 0.5 mg PO BID PRN PRN Anxiety 01/06/19 Unknown History multivitamin 1 ea PO DAILY 01/06/19 Unkno wn History ondansetron HCl 4 mg tablet 4 mg PO PRN NAUSEA 3 Unknown History lactobacillus combination no.9 4 4,000 mmu cells PO QD AY 06/14/25 Unknown History billion cell capsule (Adult 50 Plus Probiotic) Allergy/AdvReac Type Severity Reaction Status Date / Time No Known Allergies Allergy Verified 06/24/25 14:15 Family History Father Cancer "triple myeloma" Brother Kidney disease 3 kidney transplants Surgical History (Updated 06/24/25 @ 14:26 by Renetta Trejo) History of removal of Port-a-Cath H/O cataract extraction History of colostomy reversal History of bowel resection Hx of colostomy Hx of hand surgery History of hernia repair Hx of colonoscopy Social History Smoking Status: Never smoker alcohol intake: never substance use type: does not use Audit: Pertinent Findings Pertinent Findings EKG Perinent findings: 04/2024: NSR with nonspecific ST abnormality Recommendation Anesthesia Recommendation Anesthesia recommendation: OPTIMIZED for anesthesia
[2025-06-28] VITALS (11 sets, daily range): BP systolic 93–124; BP diastolic 51–69; PULSE 68–99; RESP 16–18; TEMP 36.3–36.5; O2SAT 98–100; BMI 19.5
[2025-06-28] MEDS: Famotidine 200 MG/20 ML MDV 20 MG in 0.9% Normal Saline (Pres. free 8 ML 300 MG IV (10:48)
[2025-06-28] MEDS: Lactated Ringers 1,000 ML 15 ML IV (10:48)
--- NOTE | 2025-06-28 10:48 | PCM.HP.STD ---
HPI - General General Date of Admission: 06/28/25 Date of Service: 06/28/25 Chief Complaint: Colorectal cancer surveillance HPI Narrative KAYLEE BENSON, is a 75 F who presents [KAYLEE BENSON, is a 75 F who presents to the office today for follow up. abd/pelvis CT 05.27.24 Mild ileus with diffuse fecal retention in the colon.. Thickening of folds of the cecum and proximal ascending colon with nonspecific colitis. No evidence for small bowel obstruction. Other findings as above chest/abd/pelvis CT 06.08.24 1. No acute pulmonary infiltrate or evidence of pulmonary metastases. 2. Fecal retention concerning for constipation. 3. Postoperative changes in the rectosigmoid colon unchanged appearance since previous exam. 4. Stable dilated pelvicalyceal systems bilaterally worse on the right side unchanged. abd/pelvis CT 07.04.24 Bilateral hydronephrosis, greater than prior. Her to large stool burden. chest/abd/pelvis CT 11.30.24 Stable examination. *BGI established 01.15.25 pt reports that she is here today to establish for when she needs her next colonoscopy. Pt was diagnosed with rectal and colon cancer in 2022, had a resection in 2023 and then had a colostomy reversal in Apr 2024. Pt denies GI symptoms of concern at this time. OV 05.18.25 pt reports that she is feeling well and denies GI symptoms of concern at this nicolas. Pt reports she recently had cataract surgery and has had some occasional nausea. [facility] Medical History History of Clostridium difficile infection PONV (postoperative nausea and vomiting) Shortness of breath on exertion C. 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 Encounter for education Regional lymph node metastasis present GERD (gastroesophageal reflux disease) Bloody stool Anxiety Diverticulitis Hiatal hernia Home Medications Medication Instructions Recorded Last Taken Type alprazolam 0.5 mg tablet (Xanax) 0.5 mg PO BID PRN PRN Anxiety 01/06/19 Unknown History multivitamin 1 ea PO DAILY 01/06/19 Unknown History ondansetron HCl 4 mg tablet 4 mg PO PRN NAUSEA 02/14/23 Unknown History lactobacillus combination no.9 4 4,000 mmu cells PO QDAY 06/14/25 Unknown History billion cell capsule (Adult 50 Plus Probiotic) Allergy/AdvReac Type Severity Reaction Status Date / Time No Known Allergies Allergy Verified 06/24/25 14:15 Family History Father Cancer "triple myeloma" Brother Kidney disease 3 kidney transplants Surgical History History of removal of Port-a-Cath H/O cataract extraction History of colostomy reversal History of bowel resection Hx of colostomy Hx of hand surgery History of hernia repair Hx of colonoscopy Social History Smoking Status: Never smoker alcohol intake: never substance use type: does not use ROS Constitutional Constitutional: Denies fatigue, fever(s), poor appetite, weight gain or weight loss Gastrointestinal Gastrointestinal: Denies belching, bloating, change in bowel habits, change in stool character, chewing difficulty, coffee ground emesis, constipation, cramping, diarrhea, dyspepsia, dysphagia, early satiety, excessive flatus, fecal incontinence, heartburn, hematemesis, hematochezia, hemorrhoids, loose stools, melena, nausea, odynophagia, rectal bleeding, tenesmus, vomiting or weight changes Physical Exam Const alert, oriented x3, no apparent distress and healthy appearing General Appearance: cooperative GI normal to inspection, nondistended, normoactive bowel sounds, soft to palpation, non-tender and non-distended Percussion: normal to percussion Rectal Exam: deferred Assessment & Plan Assessment/Plan (1) Rectal cancer: PLAN: Assessment and Plan Assessment and Plan (1) Rectal cancer: Status: Chronic Plan: [id number] female with clinical stage IIIB (T3, N2, M0) adenocarcinoma of the rectum. She underwent a divergent transverse colostomy December 2022 for impending obstruction. She completed the first phase of total neoadjuvant treatment with long course radiation February 11–March. At conclusion of treatment, clinical evaluation at [facility] showed that the patient is in complete clinical remission. That include imaging by CT and MRI of the pelvis in September 2023. November 2023 she underwent a screening colonoscopy, when residual disease was identified and she underwent robotic low anterior resection of a malignant stricture in December 2023, then reversal of temporary loop ileostomy in April 2024. She did have C. difficile that was discovered after she underwent reversible of her previous surgery. I told her that she should undergo surveillance colonoscopy. We will schedule her today for surveillance colonoscopy. ]
--- NOTE | 2025-06-28 11:04 | PCM.PRE.AN2 ---
ASA Classification* ASA Classification ASA Classification: 3 (h/o colorectal cancer, GERD, PONV, SOB) Assessment & Plan Anesthesia* Anesthesia Assessment Anesthesia Assessment: Discussed sedation and/or anesthesia options, risks, benefits, and alternatives with patient/parents/legal guardian/POA. Questions invited. The patient/parents/legal guardian/POA seems to understand and agrees to proceed with anesthesia plan. Reviewed the physical assessment, medical history, allergy history and patient home medications list prior to surgery/procedure/anesthetic and documented any changes. Performed airway and anesthesia risk assessments. Anesthesia Type Anesthesia Type: MAC History Source History Obtained from:: Patient and Chart Anesthesia Focused Assessment* Temperature: 97.6 F Pulse Rate: 75 Blood Pressure: 124/62 Respiratory Rate: 16 Pulse Ox: 100 Oxygen Delivery Method: Room Air Airway Assessment Mouth opens: >3 cm Mallampati Score: I Neck Range of motion (ROM): Full ROM Labs Anesthesia Preop lab: CBC WBC, (4.4-11.0) 3.0 K/mm3 L 06/07/25, 08:59 RBC, (4.2-5.4) 4.06 M/mm3 L 06/07/25, 08:59 Hgb, (12.0-15.0) 12.2 g/dL 06/07/25, :59 Hct, (37-47) 37.6 % 06/07/25, 08:59 Plt Count, (150-450) 250 K/mm3 06/07/25, 08:59 CHEMISTRY Potassium, (3.3-5.1) 5.3 mmol/L H 06/07/25, 08:59 Sodium, (133-145) 133 mmol/L 06/07/25, 08:59 Magnesium, (1.6-2.6) 2.1 mg/dL 08/27/23, 11:30 Phosphorus, (2.5-4.9) 3.5 mg/dL 08/07/23, 09:04 BUN, (4-19) 12 mg/dL 06/07/25, 08:59 Creatinine, (0.70-1.20) 0.65 mg/dL L 06/07/25, 08:59 Glucose, (70-99) 87 mg/dL 06/07/25, 08:59 TSH, (0.358-3.74) 0.61 uIU/mL 01/06/19, 17:45 COAG PT, (11.7-14.9) 13.5 SECONDS 05/13/24, 10:58 Pre-Assessment Diagnosis/Proposed Procedure Planned Operative Procedure(s): COLONOSCOPY Anesthesia History 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 When Was Last Pacemaker Check QUESTION #4 FULL TEXT: You/Your Family Experience fever (hyperthermia) with Anesthesia Last Oral Intake Last Oral intake: Last Oral Intake NPO since 00:00 06/28/25 10:49 Meds taken in AM with sips of No 06/28/25 10:49 water? 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 Female Yes 06/24/25 14:16 HX of Motion Sickness No 06/24/25 14:16 HX of N/V After Surgery Yes 06/24/25 14:16 Non-Smoker Yes 06/24/25 14:16 Duration of Surgery greater No 06/24/25 14:16 than 60 minutes Number of Risk Factors 3 06/24/25 14:16 PONV Score Moderate Risk 06/24/25 14:16 Height & Weight Height & Weight: Anesthesia: Height & Weight Height 5 ft 3 in 06/28/25 10:49 Weight: 50.1 kg 06/28/25 10:49 Body Mass Index (BMI) 19.5 06/28/25 10:49 Respiratory Assessment Respiratory Assessment - automotive machinist apprentice: Respiratory Tract Infection Hx - automotive machinist apprentice Hx Respiratory Tract Infection No 06/24/25 14:16 STOP Sleep Apnea STOP Sleep Apnea - automotive machinist apprentice: STOP Sleep Apnea - automotive machinist apprentice Hx Hypertension No 06/24/25 14:16 Hx Sleep Apnea No 06/24/25 14:16 CPAP BIPAP Do you snore loudly (louder No 06/24/25 14:16 than talking or can be heard Do you often feel tired/ No 06/24/25 14:16 fatigued/ sleepy during daytime? Has anyone observed you stop No 06/24/25 14:16 breathing during sleep? STOP Results Negative 06/24/25 14:16 QUESTION #5 FULL TEXT : Do you snore loudly (louder than talking or can be heard through closed doors)? 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 Specify any problems Hx of Preganancy in last 3 No 06/24/25 14:16 Months Nurse Filling Out Transfusion [id number] 06/24/25 14:16 & Questions: Date: 06/24/25 06/24/25 14:16 Time: 14:18 06/24/25 14:16 Patient unable to answer at this time (ie. confused, unrespo /Reproduction History /Reproductive History - automotive machinist apprentice: /Reproductive Hx- automotive machinist apprentice Hx Now Gestational Age (in weeks): EDC: Hx Hx Para Hx Section SAB No 06/24/25 14:16 Does the father of the baby or his family experience fever w Father of the baby Malignant Hypertension history comment Active Medications Active Medications: Current Medications Generic Name Dose Route Start Last Admin Trade Name Freq PRN Reason Stop Dose Admin Lactated Ringer's 1,000 mls @ 15 mls/hr 06/28/25 10:30 06/28/25 10:48 IV 15 mls/hr .Q48H MAVIS Administration PFSH Medical History History of Clostridium difficile infection PONV (postoperative nausea and vomiting) Shortness of breath on exertion C. 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 Encounter for education Regional lymph node metastasis present GERD (gastroesophageal reflux disease) Bloody stool Anxiety Diverticulitis Hiatal hernia Home Medications Medication Instructions Recorded Last Taken Type alprazolam 0.5 mg tablet (Xanax) 0.5 mg PO BID PRN PRN Anxiety 01/06/19 Unknown History multivitamin 1 ea PO DAILY 01/06/19 06/27/25 History ondansetron HCl 4 mg tablet 4 mg PO PRN NAUSEA 02/14/23 Unknown History lactobacillus combination no.9 4 4,000 mmu cells PO QDAY 06/14/25 06/27/25 History billion cell capsule (Adult 50 Plus Probiotic) Allergy/AdvReac Type Severity Reaction Status Date / Time No Known Allergies Allergy Verified 06/28/25 10:57 Family History Father Cancer "triple myeloma" Brother Kidney disease 3 kidney transplants Surgical History History of removal of Port-a-Cath H/O cataract extraction History of colostomy reversal History of bowel resection Hx of colostomy Hx of hand surgery History of hernia repair Hx of colonoscopy Social History Smoking Status: Never smoker alcohol intake: never substance use type: does not use Review of Systems (Anesthesia) ROS Narrative System reviewed and no additional complaints, except as documented. Physical Exam Const alert, oriented x3 and average body habitus Resp normal respiratory effort, normal air movement and clear to auscultation bilaterally Cardio regular rate, regular rhythm, no murmurs and diaphoretic
--- NOTE | 2025-06-28 11:15 | COLBX_PTH ---
PATIENT: KAYLEE BENSON LOC: EN U#:[id number] AGE/SX: 75/F ROOM: RE06/28/[address]: Dr. Quang Cox DO : 1950 BED: DIS: 06/28/2025 SPEC #: [id number] RECD: 06/28/25 13:06 STATUS: JUSTUS TABITHA #: [id number] ALESSIO: 06/28/25 11:[address]: Quang Cox DEPT: SURGICAL PATHOLOGY RECD BY: Jesus Rodriguez ENTERED: 06/28/25 13:44 SP TYPE: COLON BX OT DR: AMY Renner Tissues: A - Cecum, NOS B - COLON BIOPSY Procedures: Surgery Specimen Level IV HEADER OPERATION: Colonoscopy with biopsy PRE-OP DIAGNOSIS: Rectal cancer TISSUE SUBMITTED: A- Cecum biopsy, B- Anastomosis biopsy MICROSCOPIC DIAGNOSIS A. Cecum, biopsy: - Focal active colitis - see note. Note: Focal mild acute inflammation is noted without features of chronicity. This is a nonspecific finding which may result from bowel prep artifact, mild infection, medication injury (eg: NSAIDs) and ischemia. Recommend correlation with clinical and endoscopic findings. B. Anastomosis, biopsy: - Colonic mucosa with no specific pathologic change. MICROSCOPIC DESCRIPTION Slides are reviewed. GROSS DESCRIPTION A. Received in fixative is one container labeled with the patient's name and designated "Cecum biopsy." The specimen consists of two irregular fragments of cortez tissue, each measuring 0.5 cm. The specimen is totally submitted in one cassette. B. Received in fixative is one container labeled with the patient's name and designated "Anastomosis biopsy." The specimen consists of two irregular fragments of cortez tissue that measure 0.3 and 0.5 cm. The specimen is totally submitted in one cassette. MS 06/28/2025 CPT:[id number]
--- NOTE | 2025-06-28 11:46 | OP.PROVAT_ITS ---
06/28/2025 Chapo Renner Re : Colonoscopy procedure for Karlie Negrete Keron This procedure was performed on Saturday, June 28, 2025. My impressions and recommendations are as follows: Impressions : - Patent functional end-to-end colo-colonic anastomosis, characterized by healthy appearing mucosa. Biopsied. Recommendations : - Discharge patient to home. - Resume previous diet. - Continue present medications. - Await pathology results. - Repeat colonoscopy in 1 year for surveillance. My findings are described in the full procedure note, which is enclosed. If I can be of further assistance, please feel free to contact me at . Sincerely, Quang Cox, 06/28/2025 11:45:31 AM This report has been signed electronically.
--- NOTE | 2025-06-28 11:46 | OP.COLON_ITS ---
Patient Name: Karlie Montiel Procedure Date: 06/28/2025 11:18 AM Date of : 1950 Age: 75 Procedure: Colonoscopy Indications: High risk colon cancer surveillance: Personal history of colon cancer Providers: Quang Cox DO Referring MD: Chapo Renner Medicines: Monitored Anesthesia Care Patient Profile: This is a 75 year old female. Refer to note in patient chart for documentation of history and physical. Last Colonoscopy: 1 year ago. Complications: No immediate complications. Procedure: Pre-Anesthesia Assessment: - Prior to the procedure, a History and Physical was performed, and patient medications and allergies were reviewed. The patient is competent. The risks and benefits of the procedure and the sedation options and risks were discussed with the patient. All questions were answered and informed consent was obtained. Patient identification and proposed procedure were verified by the physician in the pre-procedure area. Mental Status Examination: alert and oriented. Airway Examination: normal oropharyngeal airway and neck mobility. Respiratory Examination: clear to auscultation. CV Examination: normal. Prophylactic Antibiotics: The patient does not require prophylactic antibiotics. Prior Anticoagulants: The patient has taken no anticoagulant or antiplatelet agents except for NSAID medication. ASA Grade Assessment: II - A patient with mild systemic disease. After reviewing the risks and benefits, the patient was deemed in satisfactory condition to undergo the procedure. The anesthesia plan was to use monitored anesthesia care (MAC). Immediately prior to administration of medications, the patient was re-assessed for adequacy to receive sedatives. The heart rate, respiratory rate, oxygen saturations, blood pressure, adequacy of pulmonary ventilation, and response to care were monitored throughout the procedure. The physical status of the patient was re-assessed after the procedure. After I obtained informed consent, the scope was passed under direct vision. Throughout the procedure, the patient's blood pressure, pulse, and oxygen saturations were monitored continuously. The Colonoscope was introduced through the anus and advanced to the cecum, identified by appendiceal orifice and ileocecal valve. The colonoscopy was performed without difficulty. The patient tolerated the procedure well. The quality of the bowel preparation was adequate. The ileocecal valve, appendiceal orifice, and rectum were photographed. Scope In: 11:30:30 AM Scope Withdrawal Time 0 hours 6 minutes 32 seconds Scope Out: 11:39:14 AM Total Procedure Duration Time 0 hours 8 minutes 44 seconds Findings: The perianal and digital rectal examinations were normal. There was evidence of a prior functional end-to-end colo-colonic anastomosis in the rectum. This was patent and was characterized by healthy appearing mucosa. The anastomosis was traversed. Biopsies were taken with a cold forceps for histology. Verification of patient identification for the specimen was done. Estimated blood loss was minimal. An area of mildly congested mucosa was found in the cecum. Biopsies were taken with a cold forceps for histology. Verification of patient identification for the specimen was done. Estimated blood loss was minimal. Impression: - Patent functional end-to-end colo-colonic anastomosis, characterized by healthy appearing mucosa. Biopsied. Recommendation: - Discharge patient to home. - Resume previous diet. - Continue present medications. - Await pathology results. - Repeat colonoscopy in 1 year for surveillance. Procedure Code(s): --- Professional --- 21031, Colonoscopy, flexible; with biopsy, single or multiple CPT copyright 2021 [employer]. All rights reserved. The codes documented in this report are preliminary and upon pre billing clinician review may be revised to meet current compliance requirements. Quang Cox DO 06/28/2025 11:45:31 AM This report has been signed electronically. Number of Addenda: 0 Note Initiated On: 06/28/2025 11:18 AM
--- NOTE | 2025-06-28 11:49 | PCM.POST.ANE ---
Anesthesia: Postop Eval I Current Vital Signs Temperature: 97.4 F Pulse Rate: 68 Blood Pressure: 99/52 Respiratory Rate: 16 Pulse Ox: 100 Oxygen Delivery Method: Room Air Assessment Airway patent: Yes Spontaneous unlabored respirations: Yes Mental status: Awake and Calm nausea: No Vomiting: No Anesthesia Complication: No Fluid Hydration Crystalloid volume administer (ml): 800 Total IV fluid infused: 800 Progress Note Anesthesia document: Postop Eval 1 completed: Yes
[2025-06-28] MEDS: 0.9% Normal Saline (500mL Bag) 500 ML IV (13:02)
== END 2025-06-28 14:02 | disposition home or self-care (01) ==
LOC: EN 10:14 → AC 10:17
PROVIDERS: Visit Provider Internal Medicine Gastroenterology
DX: Z12.11 Encounter for screening for malignant neoplasm of colon (principal); K21.9 Gastro-esophageal reflux disease without esophagitis; Z85.038 Personal history of other malignant neoplasm of large intestine; Z98.0 Intestinal bypass and anastomosis status; K52.9 Noninfective gastroenteritis and colitis, unspecified
CPT/HCPCS: 45380; 88305; J2405